=== PATIENT | female | born 1985 | race Asian ===

== ENCOUNTER 2016-04-24 15:45 | Emergency (ER) | payer OTHER | END 2016-04-24 15:49 | disposition left against medical advice (07) | LOC: M ED 15:45 | DX: R10.30 Lower abdominal pain, unspecified (principal); Z53.20 Procedure and treatment not carried out because of patient's decision for unspecified reasons ==

== ENCOUNTER 2016-04-24 16:07 | Emergency (ER) | payer OTHER ==
[2016-04-24 16:57] LABS: MEAN CORPUSCULAR HGB CONC 33.3 g/dl (32.0-36.5); MEAN CORPUSCULAR VOLUME 90.3 fl (80.0-96.0); RED CELL DISTRIBUTION WIDTH 11.9 % (11.5-14.5); WHITE BLOOD COUNT 8.6 K/mm3 (4.0-10.0)
[2016-04-24 17:26] LABS: ALBUMIN 3.9 GM/DL (3.2-5.2); ALBUMIN/GLOBULIN RATIO 1.11 (1.00-1.93); ALKALINE PHOSPHATASE 50 U/L (45-117); ALT/SGPT 12 U/L (12-78); ANION GAP 9 MEQ/L (8-16); AST/SGOT 19 U/L (15-37); BILIRUBIN,TOTAL 0.4 MG/DL (0.2-1.0); BLOOD UREA NITROGEN 13 MG/DL (7-18); CALCIUM LEVEL 8.9 MG/DL (8.5-10.1); CARBON DIOXIDE LEVEL 26 MEQ/L (21-32); CHLORIDE LEVEL 107 MEQ/L (98-107); CREATININE FOR GFR 0.51 MG/DL (0.55-1.02); GLOMERULAR FILTRATION RATE > 60.0 (>60); GLUCOSE, FASTING 95 MG/DL (70-105); SODIUM LEVEL 142 MEQ/L (136-145); TOTAL PROTEIN 7.4 GM/DL (6.4-8.2)
--- NOTE | 2016-04-24 18:49 | EDDOCDS ---
Nurse's Notes [facility] Name: Rosa Solorzano Age: 30 yrs Sex: Female : 1985 Arrival Date: 04/24/2016 Time: 16:07 Bed I1 / M1 Private MD: Other - Complete Info On Cds; Osiel Simon Diagnosis: Pelvic and perineal pain-Possible ectopic Presentation: 04/24 16:12 Presenting complaint: Patient states: Has IUD in place and missed period by 10days. jo3 Unable to locate IUP. Suspecting ectopic. Sent by Woman to woman. Adult Sepsis Screening: The patient does not have new or worsening altered mentation. Patient's respiratory rate is less than 22. Systolic blood pressure is greater than 100. Patient has a qSOFA score of 0- Negative Sepsis Screen. Suicide/Homicide risk assessment- the patient denies having any suicidal and/or homicidal ideations and does not present with any other emotional, behavioral or mental health complaints. 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 Transition of care: patient was not received from another setting of care. 16:12 Acuity: KAREN Level 3 jo3 16:12 Method Of Arrival: Walkin/Carried/Asstd jo3 Triage Assessment: 16:14 General: Appears in no apparent distress, Behavior is appropriate for age, cooperative, jo3 pleasant. Pain: Denies pain. HIV screening NA for this visit Offered previously. The patient is triaged at the bedside. See Assessment in Nurses Notes section of ED record. Neurological: Level of Consciousness is awake, alert, Oriented to person, place, time. Respiratory: Airway is patent Respiratory effort is even, unlabored. GI: Reports discomfort with palpation of abdomen. 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 none - PMHx: none; - PSHx: ; - Social history: Smoking status: Patient states was never smoker of tobacco. No barriers to communication noted, The patient speaks fluent Burkinan, Speaks appropriately for age. - Family history: Not pertinent. - : The pt / caregiver states he / she is not on anticoagulants. Home medication list is obtained from the patient. - Exposure Risk Screening:: None identified. Screenin:48 Screening information is obtained from the patient. Fall risk: No risks identified. mcp Assistance ADL's: requires no assistance with activities of daily living. Abuse/DV Screen: The patient / caregiver reports he/she is: not in a situation that causes fear, pain or injury. Nutritional screening: No deficits noted. Advance Directives: There is no active DNR order. home support is adequate. Assessment: 16:47 General: Appears in no apparent distress, comfortable, Behavior is cooperative. mcp Neurological: No deficits noted. Respiratory: Airway is patent Respiratory effort is even, unlabored. GI: Bowel sounds present X 4 quads. Abd is soft X 4 quads. Derm: Skin is pink, warm & dry. 17:30 General: Appears in no apparent distress, Behavior is cooperative, awaiting Dr Burger. mk4 Respiratory: Airway is patent Respiratory effort is even, unlabored, Respiratory pattern is regular. GI: No deficits noted. 18:31 General: Appears in no apparent distress, dr burger in room examining pt. mk4 Vital Signs: 16:08 BP 102 / 76; Pulse 83; Resp 16; Temp 99.4(O); Pulse Ox 99% ; Weight 42.64 kg; Height 5 elp ft. 0 in. (152.40 cm); Pain 6/10; 18:01 BP 108 / 60; Pulse 76; Resp 18; Temp 98.6(O); Pulse Ox 100% on R/A; Pain 0/10; jml1 16:08 Body Mass Index 18.36 (42.64 kg, 152.40 cm) elp Vitals: 16:08 Log In Time: April 24, 2016 at 16:05. el ED Course: 16:08 Patient visited by Kendy Lofton PCA. elp 16:08 Other - Complete Info On Cds is Private Physician. elp 16:08 Osiel Simon MD is Private Physician. elp 16:08 Patient moved to Waiting elp 16:09 Patient visited by Kendy Lofton PCA. elp 16:09 Patient moved to Pre RCE elp 16:13 Triage Initiated jo3 16:16 Patient visited by Jennifer Vides RN. jo3 16:19 Nathan Braun PA-C [facility]. cc10 16:19 Chad Elizalde MD is Attending Physician. cc10 16:23 Patient visited by Nathan Braun PA-C. cc10 16:23 Patient visited by Nathan Braun PA-C. cc10 16:23 Patient moved to I1 / M1 ck1 16:46 Complete Comphrensive Metabolic Sent. [facility] 16:46 Complete Blood Count Sent. [facility] 16:46 Hcg, Serum Quantitative Sent. [facility] 16:46 Type & Screen Sent. [facility] 16:46 Inserted saline lock: 20 gauge in left antecubital area and blood collected. The [facility] patient tolerated the procedure well. Labs drawn. (by ED staff). Sent per order to lab. 16:49 Patient visited by Franca Noland RN. [facility] 17:29 Patient visited by Samia Castañeda RN. mk4 17:30 The patient / caregiver is instructed regarding the plan of care and ED course. mk4 17:30 No procedures done that require assistance. mk4 17:51 Urinalysis Sent. jml1 17:51 Urine Culture Sent. jm 18:02 Patient visited by Jose Persaud. [facility] 18:40 Ignacio Kapoor is Referral Physician. cc10 18:[address] [facility] 18:47 Discontinued lock intact, bleeding controlled, pressure dressing applied, No mcp redness/swelling at site. Order Results: Lab Order: Complete Blood Count; SPEC'M 04/24/16 16:43 Test: WHITE BLOOD COUNT; Value: 8.6; Range: 4.0-10.0; Units: K/mm3; Status: F Test: RED BLOOD COUNT; Value: 4.30; Range: 4.00-5.40; Units: M/mm3; Status: F Test: HEMOGLOBIN; Value: 12.9; Range: 12.0-16.0; Units: g/dl; Status: F Test: HEMATOCRIT; Value: 38.8; Range: 36.0-47.0; Units: %; Status: F Test: MEAN CORPUSCULAR VOLUME; Value: 90.3; Range: 80.0-96.0; Units: fl; Status: F Test: MEAN CORPUSCULAR HEMOGLOBIN; Value: 30.0; Range: 27.0-33.0; Units: pg; Status: F Test: MEAN CORPUSCULAR HGB CONC; Value: 33.3; Range: 32.0-36.5; Units: g/dl; Status: F Test: RED CELL DISTRIBUTION WIDTH; Value: 11.9; Range: 11.5-14.5; Units: %; Status: F Test: PLATELET COUNT, AUTOMATED; Value: 310; Range: 150-450; Units: k/mm3; Status: F Lab Order: Hcg, Serum Quantitative; [facility] 04/24/16 16:43 Test: HCG, SERUM QUANTITATIVE; Value: 716; Units: MIU/ML; Status: F Test Note: ; GESTATIONAL AGE APPROXIMATE HCG RANGE (MIU/ML) 0.2-1 WEEK 5-50 1-2 WEEKS 50-500 2-3 WEEKS 100-5,000 3-4 WEEKS 500-10,000 4-5 WEEKS 1,000-50,000 5-6 WEEKS 10,000-100,000 6-8 WEEKS 15,000-200,000 2-3 MONTHS 10,000-100,000 NON FEMALES LESS THAN 3.0 Patient samples may contain human heterophilic antibodies that could react with immunoassays to give falsely elevated or depressed results. This assay has been designed to minimize interference from heterophilic antibodies. Elevated hCG levels have also been associated with trophoblastic disease and nontrophoblastic neoplasms. The possibility of having these diseases should be considered before a diagnosis of is made. This test is not intended for use as a surrogate marker for aiding in the diagnosis or monitoring the treatment of cancer patients. Siemens Tapomat methodology. Lab Order: Type & Screen; [facility] 04/24/16 16:43 Test: BLOOD TYPE; Value: AB POS; Status: F Test: AB SCREEN (INDIRECT JESSIKA)GEL; Value: NEGATIVE; Status: F Lab Order: Urinalysis; [facility] 04/24/16 17:49 Test: APPEARANCE, URINE; Value: CLEAR; Range: CLEAR; Status: F Test: COLOR, URINE; Value: STRAW; Range: YELLOW; Status: F Test: PH,URINE; Value: 7.0; Range: 5.0-9.0; Units: UNITS; Status: F Test: SPECIFIC GRAVITY URINE AUTO; Value: 1.010; Range: 1.002-1.035; Status: F Test: PROTEIN, URINE AUTO; Value: NEGATIVE; Range: NEGATIVE; Units: mg/dL; Status: F Test: GLUCOSE, URINE (UA) AUTO; Value: NEGATIVE; Range: NEGATIVE; Units: mg/dL; Status: F Test: KETONE, URINE AUTO; Value: TRACE; Range: NEGATIVE; Abnormal: Above high normal; Units: mg/dL; Status: F Test: UROBILINOGEN, URINE AUTO; Value: 0.2; Range: 0.0-2.0; Units: mg/dL; Status: F Test: BILIRUBIN, URINE AUTO; Value: NEGATIVE; Range: NEGATIVE; Status: F Test: NITRITE, URINE AUTO; Value: NEGATIVE; Range: NEGATIVE; Status: F Test: LEUKOCYTE ESTERASE, URINE AUTO; Value: NEGATIVE; Range: NEGATIVE; Status: F Test: BLOOD, URINE BLOOD; Value: NEGATIVE; Range: NEGATIVE; Status: F Test: WBC, URINE AUTO; Value: 0; Range: 0-3; Units: /HPF; Status: F Test: RBC, URINE AUTO; Value: 1; Range: 0-3; Units: /HPF; Status: F Test: BACTERIA, URINE AUTO; Value: NEGATIVE; Range: NEGATIVE; Status: F Test: SQUAMOUS EPITHELIAL CELL UR AU; Value: 0; Range: 0-6; Units: /HPF; Status: F Test: MUCUS, URINE; Value: SMALL; Range: NEGATIVE; Status: F Test: HYALINE CAST, URINE AUTO; Value: 0; Range: 0-1; Units: /LPF; Status: F Lab Order: Complete Comphrensive Metabolic; SPEC'M 04/24/16 16:43 Test: GLUCOSE, FASTING; Value: 95; Range: 70-105; Units: MG/DL; Status: F Test: BLOOD UREA NITROGEN; Value: 13; Range: 7-18; Units: MG/DL; Status: F Test: CREATININE FOR GFR; Value: 0.51; Range: 0.55-1.02; Abnormal: Below low normal; Units: MG/DL; Status: F Test: GLOMERULAR FILTRATION RATE; Value: > 60.0; Range: >60; Status: F Test: SODIUM LEVEL; Value: 142; Range: 136-145; Units: MEQ/L; Status: F Test: POTASSIUM SERUM; Value: 4.0; Range: 3.5-5.1; Units: MEQ/L; Status: F Test: CHLORIDE LEVEL; Value: 107; Range: 98-107; Units: MEQ/L; Status: F Test: CARBON DIOXIDE LEVEL; Value: 26; Range: 21-32; Units: MEQ/L; Status: F Test: ANION GAP; Value: 9; Range: 8-16; Units: MEQ/L; Status: F Test: CALCIUM LEVEL; Value: 8.9; Range: 8.5-10.1; Units: MG/DL; Status: F Test: AST/SGOT; Value: 19; Range: 15-37; Units: U/L; Status: F Test: ALT/SGPT; Value: 12; Range: 12-78; Units: U/L; Status: F Test: ALKALINE PHOSPHATASE; Value: 50; Range: 45-117; Units: U/L; Status: F Test: BILIRUBIN,TOTAL; Value: 0.4; Range: 0.2-1.0; Units: MG/DL; Status: F Test: TOTAL PROTEIN; Value: 7.4; Range: 6.4-8.2; Units: GM/DL; Status: F Test: ALBUMIN; Value: 3.9; Range: 3.2-5.2; Units: GM/DL; Status: F Test: ALBUMIN/GLOBULIN RATIO; Value: 1.11; Range: 1.00-1.93; Status: F Test Note: ; Units are mL/min/1.73 m2 Chronic Kidney Disease Staging per NKF: Stage I & II GFR >=60 Normal to Mildly Decreased Stage III GFR 30-59 Moderately Decreased Stage IV GFR 15-29 Severely Decreased Stage V GFR <15 Very Little GFR Left ESRD GFR <15 on EMERGENCY ROOM CLINICIAN Outcome: 18:41 Discharge ordered by Provider. cc10 18:48 Discharge Assessment: patient administered narcotics - no. The following High Risk [facility] Discharge criteria are identified: None. Discharged to home ambulatory. Condition: stable. Discharge instructions given to patient, Instructed on discharge instructions, follow up and referral plans. Demonstrated understanding of instructions, Pt was receptive of discharge instructions/ teaching. No special radiology studies were completed. Property sent home with patient. 18:[address] [facility] Signatures: Franca Noland RN RN mcp Kim-Ashcraft, Connie, RN RN ck1 Jennifer Vides RN RN [email or web address] Jose Persaudl1 Kendy Lofton, COLLECTION OFFICER COLLECTION OFFICER elp Samia Castañeda, RN RN mk4 Nathan Braun, PALeticiaC PALeticiaC cc10 Corrections: (The following items were deleted from the chart) 16:09 16:08 BP 102 / 76; Pulse 83bpm; Resp 16bpm; Pulse Ox 99%; 42.64 kg; Height 5 ft. 0 in.; elp BMI: 18.3; Pain 6/10; elp MTDD
--- NOTE | 2016-04-24 18:49 | EDDOCDS ---
Physician Documentation [facility] Name: Rosa Solorzano Age: 30 yrs Sex: Female : 1985 Arrival Date: 04/24/2016 Time: 16:07 Bed I1 / M1 Private MD: Other - Complete Info On Cds; Osiel Simon Disposition: 04/24/16 18:41 Discharged to Home/Self Care. Impression: Pelvic and perineal pain - Possible ectopic . - Condition is Stable. - Discharge Instructions: Pelvic Pain, Female, Ectopic . - Medication Reconciliation form. - Follow up: Emergency Department; When: 1 - 2 days; Reason: Recheck today's complaints, Continuance of care, recheck HCG level. . Follow up: Ignacio Kapoor; When: Call to arrange an appointment; Reason: Wound/Symptom Recheck, Recheck today's complaints, Worsening of conditions, Continuance of care. - Problem is new. - Symptoms have improved. - Notes: Return on Thursday evening for a rehceck of your HCG level. Your level today is 716. Historical: - Allergies: Bactrim; - Home Meds: 1. none - PMHx: none; - PSHx: ; - Social history: Smoking status: Patient states was never smoker of tobacco. No barriers to communication noted, The patient speaks fluent Polish, Speaks appropriately for age. - Family history: Not pertinent. - : The pt / caregiver states he / she is not on anticoagulants. Home medication list is obtained from the patient. - Exposure Risk Screening:: None identified. TOP POLISHER: 04/24 16:14 LMP 03/15/2016 jo3 Vital Signs: 16:08 BP 102 / 76; Pulse 83; Resp 16; Temp 99.4(O); Pulse Ox 99% ; Weight 42.64 kg / 94.01 elp lbs; Height 5 ft. 0 in. (152.40 cm); Pain 6/10; 18:01 BP 108 / 60; Pulse 76; Resp 18; Temp 98.6(O); Pulse Ox 100% on R/A; Pain 0/10; jml1 16:08 Body Mass Index 18.36 (42.64 kg, 152.40 cm) elp MDM: 16:28 IV Saline Lock ordered. cc10 16:28 Undress patient appropriately for examination ordered. cc10 16:29 Complete Blood Count Ordered. EDMS 16:29 Hcg, Serum Quantitative Ordered. EDMS 16:29 Urinalysis Ordered. EDMS 16:30 Urine Culture Ordered. EDMS 16:30 Type & Screen Ordered. EDMS 16:30 NOTHING BY MOUTH+DIET ordered. EDMS 16:35 Complete Comphrensive Metabolic Ordered. EDMS 17:45 Complete Comphrensive Metabolic Reviewed. cc10 17:45 Complete Blood Count Reviewed. cc10 17:45 Hcg, Serum Quantitative Reviewed. cc10 17:45 Type & Screen Reviewed. cc10 17:55 Vital Signs ordered. cc10 18:26 Urinalysis Reviewed. cc10 18:40 Misc Field Pipelines Supervisor Order ordered. cc10 18:42 Misc Field Pipelines Supervisor Order complete. jml1 18:46 PROGESTERONE LEVEL Ordered. EDMS Signatures: Dispatcher [employer] EDMS Franca Noland, RN RN Jennifer DobbinsRN RN Jose Stern jml1 Samia Castañeda RN RN mk4 Nathan Braun, GIA PA-C cc10 The chart was reviewed and I authenticate all verbal orders and agree with the evaluation and treatment provided.Corrections: (The following items were deleted from the chart) 16:50 16:30 1ST TRIMESTER US+US ordered. EDMS EDMS MTDD
[2016-04-24 19:09] LABS: PROGESTERONE 30.4 NG/ML
--- NOTE | 2016-04-26 19:49 | EDDOCDS ---
Physician Documentation [facility] Name: Rosa Solorzano Age: 30 yrs Sex: Female : 1985 Arrival Date: 04/24/2016 Time: 16:07 Bed I1 / M1 Private MD: Other - Complete Info On Cds; Osiel Simon Disposition: 04/24/16 18:41 Discharged to Home/Self Care. Impression: Pelvic and perineal pain - Possible ectopic . - Condition is Stable. - Discharge Instructions: Pelvic Pain, Female, Ectopic . - Medication Reconciliation form. - Follow up: Emergency Department; When: 1 - 2 days; Reason: Recheck today's complaints, Continuance of care, recheck HCG level. . Follow up: Ignacio Kapoor; When: Call to arrange an appointment; Reason: Wound/Symptom Recheck, Recheck today's complaints, Worsening of conditions, Continuance of care. - Problem is new. - Symptoms have improved. - Notes: Return on Thursday evening for a rehceck of your HCG level. Your level today is 716. Historical: - Allergies: Bactrim; - Home Meds: 1. none - PMHx: none; - PSHx: ; - Social history: Smoking status: Patient states was never smoker of tobacco. No barriers to communication noted, The patient speaks fluent Chinese, Speaks appropriately for age. - Family history: Not pertinent. - : The pt / caregiver states he / she is not on anticoagulants. Home medication list is obtained from the patient. - Exposure Risk Screening:: None identified. HELPER COORDINATOR: 04/24 16:14 LMP 03/15/2016 jo3 Vital Signs: 16:08 BP 102 / 76; Pulse 83; Resp 16; Temp 99.4(O); Pulse Ox 99% ; Weight 42.64 kg / 94.01 elp lbs; Height 5 ft. 0 in. (152.40 cm); Pain 6/10; 18:01 BP 108 / 60; Pulse 76; Resp 18; Temp 98.6(O); Pulse Ox 100% on R/A; Pain 0/10; jml1 16:08 Body Mass Index 18.36 (42.64 kg, 152.40 cm) elp MDM: 16:28 IV Saline Lock ordered. cc10 16:28 Undress patient appropriately for examination ordered. cc10 16:29 Complete Blood Count Ordered. EDMS 16:29 Hcg, Serum Quantitative Ordered. EDMS 16:29 Urinalysis Ordered. EDMS 16:30 Urine Culture Ordered. EDMS 16:30 Type & Screen Ordered. EDMS 16:30 NOTHING BY MOUTH+DIET ordered. EDMS 16:35 Complete Comphrensive Metabolic Ordered. EDMS 17:45 Complete Comphrensive Metabolic Reviewed. cc10 17:45 Complete Blood Count Reviewed. cc10 17:45 Hcg, Serum Quantitative Reviewed. cc10 17:45 Type & Screen Reviewed. cc10 17:55 Vital Signs ordered. cc10 18:26 Urinalysis Reviewed. cc10 18:40 [employer] Principal Order ordered. cc10 18:42 Misc [employer] Principal Order complete. jml1 18:46 PROGESTERONE LEVEL Ordered. EDMS 18:54 [facility] [place] Payment Agreement was scanned into [employer] and attached to record. gjb 18:54 Financial registration complete. b 04/25 12:04 T-Sheet-- Draft Copy was scanned into [employer] and attached to record. gb Signatures: Dispatcher [employer] EDDC Franca Noland, RN RN Clary Alex, Reg Reg gb Jennifer VidesRN RN Jose Stern jml1 Samia Castañeda RN RN mk4 Nathan Braun, PA-Lb PAReshma Barreto The chart was reviewed and I authenticate all verbal orders and agree with the evaluation and treatment provided.Corrections: (The following items were deleted from the chart) 04/24 16:50 16:30 1ST TRIMESTER US+US ordered. EDDC EDMS Attachments: 18:54 [facility] [place] Payment Agreement [facility] 04/25 12:04 T-Sheet-- Draft Copy gb Chart Complete MTDD
--- NOTE | 2016-04-26 19:49 | EDDOCDS ---
Nurse's Notes [facility] Name: Rosa Solorzano Age: 30 yrs Sex: Female : 1985 Arrival Date: 04/24/2016 Time: 16:07 Bed I1 / M1 Private MD: Other - Complete Info On Cds; Osiel Simon Diagnosis: Pelvic and perineal pain-Possible ectopic Presentation: 04/24 16:12 Presenting complaint: Patient states: Has IUD in place and missed period by 10days. jo3 Unable to locate IUP. Suspecting ectopic. Sent by Woman to woman. Adult Sepsis Screening: The patient does not have new or worsening altered mentation. Patient's respiratory rate is less than 22. Systolic blood pressure is greater than 100. Patient has a qSOFA score of 0- Negative Sepsis Screen. Suicide/Homicide risk assessment- the patient denies having any suicidal and/or homicidal ideations and does not present with any other emotional, behavioral or mental health complaints. Status: Patient is not a business services representative or dependent. Transition of care: patient was not received from another setting of care. 16:12 Acuity: KAREN Level 3 jo3 16:12 Method Of Arrival: Walkin/Carried/Asstd jo3 Triage Assessment: 16:14 General: Appears in no apparent distress, Behavior is appropriate for age, cooperative, jo3 pleasant. Pain: Denies pain. HIV screening NA for this visit Offered previously. The patient is triaged at the bedside. See Assessment in Nurses Notes section of ED record. Neurological: Level of Consciousness is awake, alert, Oriented to person, place, time. Respiratory: Airway is patent Respiratory effort is even, unlabored. GI: Reports discomfort with palpation of abdomen. 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 none - PMHx: none; - PSHx: ; - Social history: Smoking status: Patient states was never smoker of tobacco. No barriers to communication noted, The patient speaks fluent Swiss, Speaks appropriately for age. - Family history: Not pertinent. - : The pt / caregiver states he / she is not on anticoagulants. Home medication list is obtained from the patient. - Exposure Risk Screening:: None identified. Screenin:48 Screening information is obtained from the patient. Fall risk: No risks identified. mcp Assistance ADL's: requires no assistance with activities of daily living. Abuse/DV Screen: The patient / caregiver reports he/she is: not in a situation that causes fear, pain or injury. Nutritional screening: No deficits noted. Advance Directives: There is no active DNR order. home support is adequate. Assessment: 16:47 General: Appears in no apparent distress, comfortable, Behavior is cooperative. mcp Neurological: No deficits noted. Respiratory: Airway is patent Respiratory effort is even, unlabored. GI: Bowel sounds present X 4 quads. Abd is soft X 4 quads. Derm: Skin is pink, warm & dry. 17:30 General: Appears in no apparent distress, Behavior is cooperative, awaiting Dr Burger. mk4 Respiratory: Airway is patent Respiratory effort is even, unlabored, Respiratory pattern is regular. GI: No deficits noted. 18:31 General: Appears in no apparent distress, dr burger in room examining pt. mk4 Vital Signs: 16:08 BP 102 / 76; Pulse 83; Resp 16; Temp 99.4(O); Pulse Ox 99% ; Weight 42.64 kg; Height 5 elp ft. 0 in. (152.40 cm); Pain 6/10; 18:01 BP 108 / 60; Pulse 76; Resp 18; Temp 98.6(O); Pulse Ox 100% on R/A; Pain 0/10; jml1 16:08 Body Mass Index 18.36 (42.64 kg, 152.40 cm) elp Vitals: 16:08 Log In Time: April 24, 2016 at 16:05. el ED Course: 16:08 Patient visited by Kendy Lofton PCA. elp 16:08 Other - Complete Info On Cds is Private Physician. elp 16:08 Osiel Simon MD is Private Physician. elp 16:08 Patient moved to Waiting elp 16:09 Patient visited by Kendy Lofton PCA. elp 16:09 Patient moved to Pre RCE elp 16:13 Triage Initiated jo3 16:16 Patient visited by Jennifer Vides RN. jo3 16:19 [facility] cc10 16:19 Chad Elizalde MD is Attending Physician. cc10 16:23 Patient visited by Nathan Braun PA-C. cc10 16:23 Patient visited by Nathan Braun PA-C. cc10 16:23 Patient moved to I1 / M1 ck1 16:46 Complete Comphrensive Metabolic Sent. [facility] 16:46 Complete Blood Count Sent. [facility] 16:46 Hcg, Serum Quantitative Sent. [facility] 16:46 Type & Screen Sent. [facility] 16:46 Inserted saline lock: 20 gauge in left antecubital area and blood collected. The [facility] patient tolerated the procedure well. Labs drawn. (by ED staff). Sent per order to lab. 16:49 Patient visited by Franca Noland, MARISSA. [facility] 17:29 Patient visited by Samia Castañeda RN. mk4 17:30 The patient / caregiver is instructed regarding the plan of care and ED course. mk4 17:30 No procedures done that require assistance. mk4 17:51 Urinalysis Sent. jml1 17:51 Urine Culture Sent. jml1 18:02 Patient visited by Jose Persaud. jml1 18:40 Ignacio Kapoor is Referral Physician. cc10 18:47 PROGESTERONE LEVEL Sent. [facility] 18:47 Discontinued lock intact, bleeding controlled, pressure dressing applied, No mcp redness/swelling at site. 18:54 [facility] Payment Agreement was scanned into [employer] and attached to record. gjb 19:37 Patient name changed from Rosa\S\\S\Solorzano\S\ to Rosa\S\ \S\Solorzano. EDMS 04/25 12:04 T-Sheet-- Draft Copy was scanned into [employer] and attached to record. gb Order Results: Lab Order: Complete Blood Count; SPEC'M 04/24/16 16:43 Test: WHITE BLOOD COUNT; Value: 8.6; Range: 4.0-10.0; Units: K/mm3; Status: F Test: RED BLOOD COUNT; Value: 4.30; Range: 4.00-5.40; Units: M/mm3; Status: F Test: HEMOGLOBIN; Value: 12.9; Range: 12.0-16.0; Units: g/dl; Status: F Test: HEMATOCRIT; Value: 38.8; Range: 36.0-47.0; Units: %; Status: F Test: MEAN CORPUSCULAR VOLUME; Value: 90.3; Range: 80.0-96.0; Units: fl; Status: F Test: MEAN CORPUSCULAR HEMOGLOBIN; Value: 30.0; Range: 27.0-33.0; Units: pg; Status: F Test: MEAN CORPUSCULAR HGB CONC; Value: 33.3; Range: 32.0-36.5; Units: g/dl; Status: F Test: RED CELL DISTRIBUTION WIDTH; Value: 11.9; Range: 11.5-14.5; Units: %; Status: F Test: PLATELET COUNT, AUTOMATED; Value: 310; Range: 150-450; Units: k/mm3; Status: F Lab Order: Hcg, Serum Quantitative; SPEC'M 04/24/16 16:43 Test: HCG, SERUM QUANTITATIVE; Value: 716; Units: MIU/ML; Status: F Test Note: ; GESTATIONAL AGE APPROXIMATE HCG RANGE (MIU/ML) 0.2-1 WEEK 5-50 1-2 WEEKS 50-500 2-3 WEEKS 100-5,000 3-4 WEEKS 500-10,000 4-5 WEEKS 1,000-50,000 5-6 WEEKS 10,000-100,000 6-8 WEEKS 15,000-200,000 2-3 MONTHS 10,000-100,000 NON FEMALES LESS THAN 3.0 Patient samples may contain human heterophilic antibodies that could react with immunoassays to give falsely elevated or depressed results. This assay has been designed to minimize interference from heterophilic antibodies. Elevated hCG levels have also been associated with trophoblastic disease and nontrophoblastic neoplasms. The possibility of having these diseases should be considered before a diagnosis of is made. This test is not intended for use as a surrogate marker for aiding in the diagnosis or monitoring the treatment of cancer patients. Siemens Weele[employer] methodology. Lab Order: Type & Screen; SPEC' 04/24/16 16:43 Test: BLOOD TYPE; Value: AB POS; Status: F Test: AB SCREEN (INDIRECT JESSIKA)GEL; Value: NEGATIVE; Status: F Lab Order: Urinalysis; SPEC' 04/24/16 17:49 Test: APPEARANCE, URINE; Value: CLEAR; Range: CLEAR; Status: F Test: COLOR, URINE; Value: STRAW; Range: YELLOW; Status: F Test: PH,URINE; Value: 7.0; Range: 5.0-9.0; Units: UNITS; Status: F Test: SPECIFIC GRAVITY URINE AUTO; Value: 1.010; Range: 1.002-1.035; Status: F Test: PROTEIN, URINE AUTO; Value: NEGATIVE; Range: NEGATIVE; Units: mg/dL; Status: F Test: GLUCOSE, URINE (UA) AUTO; Value: NEGATIVE; Range: NEGATIVE; Units: mg/dL; Status: F Test: KETONE, URINE AUTO; Value: TRACE; Range: NEGATIVE; Abnormal: Above high normal; Units: mg/dL; Status: F Test: UROBILINOGEN, URINE AUTO; Value: 0.2; Range: 0.0-2.0; Units: mg/dL; Status: F Test: BILIRUBIN, URINE AUTO; Value: NEGATIVE; Range: NEGATIVE; Status: F Test: NITRITE, URINE AUTO; Value: NEGATIVE; Range: NEGATIVE; Status: F Test: LEUKOCYTE ESTERASE, URINE AUTO; Value: NEGATIVE; Range: NEGATIVE; Status: F Test: BLOOD, URINE BLOOD; Value: NEGATIVE; Range: NEGATIVE; Status: F Test: WBC, URINE AUTO; Value: 0; Range: 0-3; Units: /HPF; Status: F Test: RBC, URINE AUTO; Value: 1; Range: 0-3; Units: /HPF; Status: F Test: BACTERIA, URINE AUTO; Value: NEGATIVE; Range: NEGATIVE; Status: F Test: SQUAMOUS EPITHELIAL CELL UR AU; Value: 0; Range: 0-6; Units: /HPF; Status: F Test: MUCUS, URINE; Value: SMALL; Range: NEGATIVE; Status: F Test: HYALINE CAST, URINE AUTO; Value: 0; Range: 0-1; Units: /LPF; Status: F Lab Order: Urine Culture; SPEC'M 04/24/16 17:49 Test: URINE CULTURE; Value: <EXTERNAL COMMENT eCWMed> FULL REPORT IN LAB NOTES (eCW and Medent).; Status: F Test: URINE CULTURE; Value: URINE CULTURE RESULT NO GROWTH; Status: F Lab Order: Complete Comphrensive Metabolic; SPEC'M 04/24/16 16:43 Test: GLUCOSE, FASTING; Value: 95; Range: 70-105; Units: MG/DL; Status: F Test: BLOOD UREA NITROGEN; Value: 13; Range: 7-18; Units: MG/DL; Status: F Test: CREATININE FOR GFR; Value: 0.51; Range: 0.55-1.02; Abnormal: Below low normal; Units: MG/DL; Status: F Test: GLOMERULAR FILTRATION RATE; Value: > 60.0; Range: >60; Status: F Test: SODIUM LEVEL; Value: 142; Range: 136-145; Units: MEQ/L; Status: F Test: POTASSIUM SERUM; Value: 4.0; Range: 3.5-5.1; Units: MEQ/L; Status: F Test: CHLORIDE LEVEL; Value: 107; Range: 98-107; Units: MEQ/L; Status: F Test: CARBON DIOXIDE LEVEL; Value: 26; Range: 21-32; Units: MEQ/L; Status: F Test: ANION GAP; Value: 9; Range: 8-16; Units: MEQ/L; Status: F Test: CALCIUM LEVEL; Value: 8.9; Range: 8.5-10.1; Units: MG/DL; Status: F Test: AST/SGOT; Value: 19; Range: 15-37; Units: U/L; Status: F Test: ALT/SGPT; Value: 12; Range: 12-78; Units: U/L; Status: F Test: ALKALINE PHOSPHATASE; Value: 50; Range: 45-117; Units: U/L; Status: F Test: BILIRUBIN,TOTAL; Value: 0.4; Range: 0.2-1.0; Units: MG/DL; Status: F Test: TOTAL PROTEIN; Value: 7.4; Range: 6.4-8.2; Units: GM/DL; Status: F Test: ALBUMIN; Value: 3.9; Range: 3.2-5.2; Units: GM/DL; Status: F Test: ALBUMIN/GLOBULIN RATIO; Value: 1.11; Range: 1.00-1.93; Status: F Test Note: ; Units are mL/min/1.73 m2 Chronic Kidney Disease Staging per NKF: Stage I & II GFR >=60 Normal to Mildly Decreased Stage III GFR 30-59 Moderately Decreased Stage IV GFR 15-29 Severely Decreased Stage V GFR <15 Very Little GFR Left ESRD GFR <15 on DRY MOLDER Lab Order: PROGESTERONE LEVEL; SPEC'M 04/24/16 16:43 Test: PROGESTERONE; Value: 30.4; Units: NG/ML; Status: F Test Note: ; Normal Ranges (ng/ml) Females : FOLLICULAR PHASE 0.15-1.40 LUTEAL PHASE 3.34-25.56 MID-LUTEAL PHASE 4.44-28.03 POST MENOPAUSAL <0.73 Females : 1st TRIMESTER 11.22-90.00 2nd TRIMESTER 25.55-89.40 3rd TRIMESTER 48.40-422.50 Outcome: 04/24 18:41 Discharge ordered by Provider. cc10 18:48 Discharge Assessment: patient administered narcotics - no. The following High Risk [facility] Discharge criteria are identified: None. Discharged to home ambulatory. Condition: stable. Discharge instructions given to patient, Instructed on discharge instructions, follow up and referral plans. Demonstrated understanding of instructions, Pt was receptive of discharge instructions/ teaching. No special radiology studies were completed. Property sent home with patient. 18:48 Patient left the ED. [facility] Signatures: Dispatcher [employer] EDFranca Baxter, RN RN [facility] Clary Gorman, Reg Reg Tanvi Winetr,RN RN ck1 Jennifer Vides,RN RN massiel3 Jose Persaud jml1 Kendy Lofton, YOVANA INFORMATION TECHNOLOGY CONSULTANT Samia Sierra, RN RN mk4 Nathan Braun, PA-C PA-C cc10 Reshma Noonan Corrections: (The following items were deleted from the chart) 16:09 16:08 BP 102 / 76; Pulse 83bpm; Resp 16bpm; Pulse Ox 99%; 42.64 kg; Height 5 ft. 0 in.; elp BMI: 18.3; Pain 6/10; elp Chart Complete MTDD
--- NOTE | 2016-04-26 19:49 | EDDOCDS ---
Physician Documentation [facility] Name: Rosa Solorzano Age: 30 yrs Sex: Female : 1985 Arrival Date: 04/24/2016 Time: 16:07 Bed I1 / M1 Private MD: Other - Complete Info On Cds; Osiel Simon Disposition: 04/24/16 18:41 Discharged to Home/Self Care. Impression: Pelvic and perineal pain - Possible ectopic . - Condition is Stable. - Discharge Instructions: Pelvic Pain, Female, Ectopic . - Medication Reconciliation form. - Follow up: Emergency Department; When: 1 - 2 days; Reason: Recheck today's complaints, Continuance of care, recheck HCG level. . Follow up: Ignacio Kapoor; When: Call to arrange an appointment; Reason: Wound/Symptom Recheck, Recheck today's complaints, Worsening of conditions, Continuance of care. - Problem is new. - Symptoms have improved. - Notes: Return on Thursday evening for a rehceck of your HCG level. Your level today is 716. Historical: - Allergies: Bactrim; - Home Meds: 1. none - PMHx: none; - PSHx: ; - Social history: Smoking status: Patient states was never smoker of tobacco. No barriers to communication noted, The patient speaks fluent Maori, Speaks appropriately for age. - Family history: Not pertinent. - : The pt / caregiver states he / she is not on anticoagulants. Home medication list is obtained from the patient. - Exposure Risk Screening:: None identified. ADVERTISING JOB TITLES: 04/24 16:14 LMP 03/15/2016 jo3 Vital Signs: 16:08 BP 102 / 76; Pulse 83; Resp 16; Temp 99.4(O); Pulse Ox 99% ; Weight 42.64 kg / 94.01 elp lbs; Height 5 ft. 0 in. (152.40 cm); Pain 6/10; 18:01 BP 108 / 60; Pulse 76; Resp 18; Temp 98.6(O); Pulse Ox 100% on R/A; Pain 0/10; jml1 16:08 Body Mass Index 18.36 (42.64 kg, 152.40 cm) elp MDM: 16:28 IV Saline Lock ordered. cc10 16:28 Undress patient appropriately for examination ordered. cc10 16:29 Complete Blood Count Ordered. EDMS 16:29 Hcg, Serum Quantitative Ordered. EDMS 16:29 Urinalysis Ordered. EDMS 16:30 Urine Culture Ordered. EDMS 16:30 Type & Screen Ordered. EDMS 16:30 NOTHING BY MOUTH+DIET ordered. EDMS 16:35 Complete Comphrensive Metabolic Ordered. EDMS 17:45 Complete Comphrensive Metabolic Reviewed. cc10 17:45 Complete Blood Count Reviewed. cc10 17:45 Hcg, Serum Quantitative Reviewed. cc10 17:45 Type & Screen Reviewed. cc10 17:55 Vital Signs ordered. cc10 18:26 Urinalysis Reviewed. cc10 18:40 Misc Actuarial Consultant Order ordered. cc10 18:42 Misc Actuarial Consultant Order complete. jml1 18:46 PROGESTERONE LEVEL Ordered. EDMS 18:54 [facility] Payment Agreement was scanned into [employer] and attached to record. gjb 18:54 Financial registration complete. b 04/25 12:04 T-Sheet-- Draft Copy was scanned into [employer] and attached to record. gb Signatures: Dispatcher [employer] EDAL Franca Noland, RN RN Clary Alex, Reg Reg gb Jennifer VidesRN RN Jose Stern jml1 Samia Castañeda RN RN mk4 Nathan Braun, PA-Lb PAReshma aBrreto The chart was reviewed and I authenticate all verbal orders and agree with the evaluation and treatment provided.Corrections: (The following items were deleted from the chart) 04/24 16:50 16:30 1ST TRIMESTER US+US ordered. EDAL EDMS Attachments: 18:54 [facility] Payment Agreement [facility] 04/25 12:04 T-Sheet-- Draft Copy gb Chart Complete MTDD
== END 2016-04-24 18:48 | disposition home or self-care (01) ==
LOC: M ED 16:07
DX: R10.2 Pelvic and perineal pain (principal); Z88.1 Allergy status to other antibiotic agents

== ENCOUNTER → 2016-04-24 | Outpatient (CLI) | payer OTHER ==
--- NOTE | 2016-04-25 08:18 | REP ---
FIRST TRIMESTER OB SONOGRAPHY: History: Positive test, IUD in place. Findings: Transabdominal and transvaginal scanning are performed. Uterine dimensions are slightly enlarged at 10.2 x 4.2 x 6.4 cm. Endometrial echo is 1.9 cm thick. The IUD is in good position in the uterine endometrium. There is no evidence of intrauterine gestation. There is mild to moderate free fluid in the cul-de-sac. The right ovary measures 2.9 x 1.9 x 1.7 cm. Its Doppler flow is normal with resistive index of 0.56. Adjacent to the right ovary there is a 2.0 x 2.6 x 1.4 cm hypoechoic solid appearing area. It is difficult to exclude normal bowel versus complex mass lesion. A normal left ovary is seen with dimensions of 3.7 x 2.5 x 3.3 cm. Its Doppler flow is normal. Left ovary resistive index 0.39. Impression: IUD in the uterus no evidence of intrauterine gestation. Free fluid in the cul-de-sac and equivocal 2.6 cm complex area adjacent to the right ovary. Ectopic cannot be excluded.
== END ==
LOC: M WHC 14:08
PROVIDERS: ATTEND Nurse Practitioner Women's Health
DX: Z32.01 Encounter for pregnancy test, result positive (principal); O26.30 Retained intrauterine contraceptive device in pregnancy, unspecified trimester

== ENCOUNTER → 2016-04-24 | Outpatient (REF) | payer OTHER | LOC: M SFHCWAGY 14:39 | PROVIDERS: ATTEND Nurse Practitioner Women's Health | DX: O26.30 Retained intrauterine contraceptive device in pregnancy, unspecified trimester (principal); Z53.9 Procedure and treatment not carried out, unspecified reason ==

== ENCOUNTER 2016-04-26 18:23 | Emergency (ER) | payer OTHER ==
--- NOTE | 2016-04-26 20:51 | EDDOCDS ---
Physician Documentation [facility] Name: Rosa Solorzano Age: 30 yrs Sex: Female : 1985 Arrival Date: 04/26/2016 Time: 18:23 Bed TR6 Private MD: Osiel Simon MD Disposition: 04/26/16 20:31 Discharged to Home/Self Care. Impression: state - FIRST TRIMESTER. - Condition is Stable. - Discharge Instructions: First Trimester of . - Medication Reconciliation, Local Pharmacy Hours form. - Follow up: Emergency Department; When: As needed; Reason: Worsening of conditions. Follow up: Ignacio Guzman; When: Call to arrange an appointment; Reason: Wound/Symptom Recheck, Recheck today's complaints, Continuance of care. - Problem is new. - Symptoms are unchanged. - Notes: YOUR HCG TODAY WAS 1641. THIS IS DOUBLING LIKE A NORMAL HCG LEVEL SHOULD IN EARLY . PLEASE FOLLOW UP WITH DR. GUZMAN'S OFFICE AT YOUR SCHEDULED APPOINTMENT ON THURSDAY. ANY WORSENING SYMPTOMS, PLEASE RETURN TO THE ER. Historical: - Allergies: Bactrim; - Home Meds: 1. none - PMHx: none; - PSHx: ; - Social history: Smoking status: Patient states was never smoker of tobacco. No barriers to communication noted, The patient speaks fluent German, Speaks appropriately for age. - Family history: Not pertinent. - : The pt / caregiver states he / she is not on anticoagulants. Home medication list is obtained from the patient. - Exposure Risk Screening:: None identified. PRESSER ALL AROUND: 04/26 18:41 LMP 03/15/2016, Verified, EDC 12/20/2016, Gestational age from LMP: 6 weeks 0 srm days Vital Signs: 18:25 BP 103 / 64; Pulse 83; Resp 17; Temp 97.2(T); Pulse Ox 100% on R/A; Weight 42.64 kg / lr2 94.01 lbs; Height 5 ft. 0 in. (152.40 cm); Pain 6/10; 20:43 BP 104 / 63; Pulse 74; Resp 18; Temp 98.7(O); Pulse Ox 95% on R/A; Pain 0/10; jmv 18:25 Body Mass Index 18.36 (42.64 kg, 152.40 cm) lr2 MDM: 19:00 Financial registration complete. gb 19:05 Hcg, Serum Quantitative Ordered. EDMS 20:03 [facility] Payment Agreement was scanned into [employer] and attached to record. gb Signatures: Dispatcher [employer] EDMS Carli Santoro, Kamaljit Guzman RN, RN RN cz Barnhardt, Gloria, Reg Reg gb Nicole Newell PA-C PA-C dt4 The chart was reviewed and I authenticate all verbal orders and agree with the evaluation and treatment provided.Attachments: 20:03 [facility] Payment Agreement gb MTDD
--- NOTE | 2016-04-26 20:51 | EDDOCDS ---
Nurse's Notes [facility] Name: Rosa Solorzano Age: 30 yrs Sex: Female : 1985 Arrival Date: 04/26/2016 Time: 18:23 Bed TR6 Private MD: Osiel Simon MD Diagnosis: state-FIRST TRIMESTER Presentation: 04/26 18:39 Presenting complaint: Patient states: seen here 2 days ago. ? ectopic. was sent here by [facility] michael for repeat HCG. left lower quad pain and diarrhea. Adult Sepsis Screening: The patient does not have new or worsening altered mentation. Patient's respiratory rate is less than 22. Systolic blood pressure is greater than 100. Patient has a qSOFA score of 0- Negative Sepsis Screen. Suicide/Homicide risk assessment- the patient denies having any suicidal and/or homicidal ideations and does not present with any other emotional, behavioral or mental health complaints. 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 Transition of care: patient was not received from another setting of care. 18:39 Acuity: KAREN Level 3 [facility] 18:39 Method Of Arrival: Walkin/Carried/Asstd [facility] Triage Assessment: 18:41 General: Appears in no apparent distress, Behavior is appropriate for age, cooperative. [facility] Pain: Pain currently is 6 out of 10 on a pain scale. HIV screening NA for this visit Offered previously. 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 none - PMHx: none; - PSHx: ; - Social history: Smoking status: Patient states was never smoker of tobacco. No barriers to communication noted, The patient speaks fluent Indonesian, Speaks appropriately for age. - Family history: Not pertinent. - : The pt / caregiver states he / she is not on anticoagulants. Home medication list is obtained from the patient. - Exposure Risk Screening:: None identified. Screenin:48 Screening information is obtained from the patient. Fall risk: No risks identified. cz Assistance ADL's: requires no assistance with activities of daily living. Abuse/DV Screen: The patient / caregiver reports he/she is: not in a situation that causes fear, pain or injury. Nutritional screening: No deficits noted. Advance Directives: Currently, there is no health care proxy. There is no active DNR order. There is no living will. There is no Power of Youth Officer. Advance directive information has not previously been placed in an [facility] medical record. Further advance directive information is declined. home support is adequate. Assessment: 20:48 Reassessment: Patient appears in no apparent distress at this time. Patient states cz symptoms have improved. Vital Signs: 18:25 BP 103 / 64; Pulse 83; Resp 17; Temp 97.2(T); Pulse Ox 100% on R/A; Weight 42.64 kg; lr2 Height 5 ft. 0 in. (152.40 cm); Pain 6/10; 20:43 BP 104 / 63; Pulse 74; Resp 18; Temp 98.7(O); Pulse Ox 95% on R/A; Pain 0/10; jmv 18:25 Body Mass Index 18.36 (42.64 kg, 152.40 cm) lr2 Vitals: 18:25 Log In Time: April 26, 2016 at 18:23. lr2 ED Course: 18:25 Patient visited by Lorrie Man. lr2 18:25 Osiel Simon is Private Physician. lr2 18:25 Patient moved to Waiting lr2 18:31 Patient moved to Pre RCE lr2 18:41 Triage Initiated srm 18:55 Nicole Newell [facility]-C [facility]. dt4 18:55 Sheron Dobbins MD is Attending Physician. dt4 18:55 Patient visited by Nicole Newell PA-C. dt4 18:55 Patient moved to Triage 3 dem1 19:13 Hcg, Serum Quantitative Sent. jmv 19:14 Patient moved to TR2 jmv 20:01 Patient name changed from Rosa\S\\S\Solorzano\S\ to Rosa\S\ \S\Solorzano. EDMS 20:03 [facility] Payment Agreement was scanned into [employer] and attached to record. gb 20:30 Ignacio Kapoor is Referral Physician. dt4 20:32 Patient moved to PD2 / 27 cj 20:44 Patient visited by Obi Adam PCA. jmv 20:47 Patient moved to TR6 cz 20:48 The patient / caregiver is instructed regarding the plan of care and ED course. cz 20:48 No IV's were initiated during this patient's visit. No procedures done that require cz assistance. Order Results: Lab Order: Hcg, Serum Quantitative; SPEC'M 04/26/16 19:13 Test: HCG, SERUM QUANTITATIVE; Value: 1641; Units: MIU/ML; Status: F Test Note: ; GESTATIONAL AGE APPROXIMATE HCG RANGE (MIU/ML) 0.2-1 WEEK 5-50 1-2 WEEKS 50-500 2-3 WEEKS 100-5,000 3-4 WEEKS 500-10,000 4-5 WEEKS 1,000-50,000 5-6 WEEKS 10,000-100,000 6-8 WEEKS 15,000-200,000 2-3 MONTHS 10,000-100,000 NON FEMALES LESS THAN 3.0 Patient samples may contain human heterophilic antibodies that could react with immunoassays to give falsely elevated or depressed results. This assay has been designed to minimize interference from heterophilic antibodies. Elevated hCG levels have also been associated with trophoblastic disease and nontrophoblastic neoplasms. The possibility of having these diseases should be considered before a diagnosis of is made. This test is not intended for use as a surrogate marker for aiding in the diagnosis or monitoring the treatment of cancer patients. [employer] methodology. Outcome: 20:31 Discharge ordered by Provider. dt4 20:49 Discharge Assessment: Patient awake, alert and oriented x 3. No cognitive and/or cz functional deficits noted. Patient verbalized understanding of disposition instructions. patient administered narcotics - no. The following High Risk Discharge criteria are identified: None. Discharged to home ambulatory. Condition: stable. Discharge instructions given to patient, Instructed on discharge instructions, follow up and referral plans. Demonstrated understanding of instructions, Pt was receptive of discharge instructions/ teaching. Property :Personal belongings accompany Pt. 20:50 No special radiology studies were completed. cz 20:50 Patient left the ED. cz Signatures: Dispatcher [employer] EDMS Carli Santoro RN RN srm Zecher, Calvin, RN RN Clary Gorman, Emily Cuevas Jane, RN RN [facility] Nicole Newell, GIA PALeticiaC dt4 Obi Adam, EDUCATIONAL COORDINATOR EDUCATIONAL COORDINATOR christopherv Lorrie Man lr2 MTDD
--- NOTE | 2016-04-28 21:51 | EDDOCDS ---
Physician Documentation [facility] Name: Rosa Solorzano Age: 30 yrs Sex: Female : 1985 Arrival Date: 04/26/2016 Time: 18:23 Bed TR6 Private MD: Osiel Simon MD Disposition: 04/26/16 20:31 Discharged to Home/Self Care. Impression: state - FIRST TRIMESTER. - Condition is Stable. - Discharge Instructions: First Trimester of . - Medication Reconciliation, Local Pharmacy Hours form. - Follow up: Emergency Department; When: As needed; Reason: Worsening of conditions. Follow up: Ignacio Guzman; When: Call to arrange an appointment; Reason: Wound/Symptom Recheck, Recheck today's complaints, Continuance of care. - Problem is new. - Symptoms are unchanged. - Notes: YOUR HCG TODAY WAS 1641. THIS IS DOUBLING LIKE A NORMAL HCG LEVEL SHOULD IN EARLY . PLEASE FOLLOW UP WITH DR. GUZMAN'S OFFICE AT YOUR SCHEDULED APPOINTMENT ON THURSDAY. ANY WORSENING SYMPTOMS, PLEASE RETURN TO THE ER. Historical: - Allergies: Bactrim; - Home Meds: 1. none - PMHx: none; - PSHx: ; - Social history: Smoking status: Patient states was never smoker of tobacco. No barriers to communication noted, The patient speaks fluent Frisian, Speaks appropriately for age. - Family history: Not pertinent. - : The pt / caregiver states he / she is not on anticoagulants. Home medication list is obtained from the patient. - Exposure Risk Screening:: None identified. MANAGER ENERGY: 04/26 18:41 LMP 03/15/2016, Verified, EDC 12/20/2016, Gestational age from LMP: 6 weeks 0 srm days Vital Signs: 18:25 BP 103 / 64; Pulse 83; Resp 17; Temp 97.2(T); Pulse Ox 100% on R/A; Weight 42.64 kg / lr2 94.01 lbs; Height 5 ft. 0 in. (152.40 cm); Pain 6/10; 20:43 BP 104 / 63; Pulse 74; Resp 18; Temp 98.7(O); Pulse Ox 95% on R/A; Pain 0/10; jmv 18:25 Body Mass Index 18.36 (42.64 kg, 152.40 cm) lr2 MDM: 19:00 Financial registration complete. gb 19:05 Hcg, Serum Quantitative Ordered. EDMS 20:03 [facility] Payment Agreement was scanned into [employer] and attached to record. gb 22:47 T-Sheet-- Draft Copy was scanned into MED[employer] and attached to record. klr Signatures: Dispatcher [employer] EDMS Carli Santoro RN RN srm Zecher, Calvin, RN RN cz Barnhardt, Gloria, Reg Reg gb Nicole Newell, Erlinda Cruz PA-C The chart was reviewed and I authenticate all verbal orders and agree with the evaluation and treatment provided.Attachments: 20:03 [facility] Payment Agreement gb 22:47 T-Sheet-- Draft Copy klr Chart Complete MTDD
--- NOTE | 2016-04-28 21:51 | EDDOCDS ---
Nurse's Notes [facility] Name: Rosa Solorzano Age: 30 yrs Sex: Female : 1985 Arrival Date: 04/26/2016 Time: 18:23 Bed TR6 Private MD: Osiel Simon MD Diagnosis: state-FIRST TRIMESTER Presentation: 04/26 18:39 Presenting complaint: Patient states: seen here 2 days ago. ? ectopic. was sent here by [facility]ichael for repeat HCG. left lower quad pain and diarrhea. Adult Sepsis Screening: The patient does not have new or worsening altered mentation. Patient's respiratory rate is less than 22. Systolic blood pressure is greater than 100. Patient has a qSOFA score of 0- Negative Sepsis Screen. Suicide/Homicide risk assessment- the patient denies having any suicidal and/or homicidal ideations and does not present with any other emotional, behavioral or mental health complaints. Status: Patient is not a patient services manager or dependent. Transition of care: patient was not received from another setting of care. 18:39 Acuity: KAREN Level 3 [facility] 18:39 Method Of Arrival: Walkin/Carried/Asstd [facility] Triage Assessment: 18:41 General: Appears in no apparent distress, Behavior is appropriate for age, cooperative. [facility] Pain: Pain currently is 6 out of 10 on a pain scale. HIV screening NA for this visit Offered previously. BILLING REP: 18:41 LMP 03/15/2016, Verified, EDC 12/20/2016, Gestational age from LMP: 6 weeks 0 srm days Historical: - Allergies: Bactrim; - Home Meds: 1. none - PMHx: none; - PSHx: ; - Social history: Smoking status: Patient states was never smoker of tobacco. No barriers to communication noted, The patient speaks fluent Persian, Speaks appropriately for age. - Family history: Not pertinent. - : The pt / caregiver states he / she is not on anticoagulants. Home medication list is obtained from the patient. - Exposure Risk Screening:: None identified. Screenin:48 Screening information is obtained from the patient. Fall risk: No risks identified. cz Assistance ADL's: requires no assistance with activities of daily living. Abuse/DV Screen: The patient / caregiver reports he/she is: not in a situation that causes fear, pain or injury. Nutritional screening: No deficits noted. Advance Directives: Currently, there is no health care proxy. There is no active DNR order. There is no living will. There is no Power of Business Services Sales Agent. Advance directive information has not previously been placed in an [facility] medical record. Further advance directive information is declined. home support is adequate. Assessment: 20:48 Reassessment: Patient appears in no apparent distress at this time. Patient states cz symptoms have improved. Vital Signs: 18:25 BP 103 / 64; Pulse 83; Resp 17; Temp 97.2(T); Pulse Ox 100% on R/A; Weight 42.64 kg; lr2 Height 5 ft. 0 in. (152.40 cm); Pain 6/10; 20:43 BP 104 / 63; Pulse 74; Resp 18; Temp 98.7(O); Pulse Ox 95% on R/A; Pain 0/10; jmv 18:25 Body Mass Index 18.36 (42.64 kg, 152.40 cm) lr2 Vitals: 18:25 Log In Time: April 26, 2016 at 18:23. lr2 ED Course: 18:25 Patient visited by Lorrie Man. lr2 18:25 Osiel Simon is Private Physician. lr2 18:25 Patient moved to Waiting lr2 18:31 Patient moved to Pre RCE lr2 18:41 Triage Initiated srm 18:55 Nicole Newell PA-C [facility]. dt4 18:55 Sheron Dobbins MD is Attending Physician. dt4 18:55 Patient visited by Nicole Newell PA-C. dt4 18:55 Patient moved to Triage 3 dem1 19:13 Hcg, Serum Quantitative Sent. jmv 19:14 Patient moved to TR2 jmv 20:01 Patient name changed from Rosa\S\\S\Solorzano\S\ to Rosa\S\ \S\Solorzano. EDMS 20:03 [facility] Payment Agreement was scanned into [employer] and attached to record. gb 20:30 Ignacio Kapoor is Referral Physician. dt4 20:32 Patient moved to PD2 / 27 cj 20:44 Patient visited by Obi Adam PCA. jmv 20:47 Patient moved to TR6 cz 20:48 The patient / caregiver is instructed regarding the plan of care and ED course. cz 20:48 No IV's were initiated during this patient's visit. No procedures done that require cz assistance. 22:47 T-Sheet-- Draft Copy was scanned into [employer] and attached to record. klr Order Results: Lab Order: Hcg, Serum Quantitative; SPEC'M 04/26/16 19:13 Test: HCG, SERUM QUANTITATIVE; Value: 1641; Units: MIU/ML; Status: F Test Note: ; GESTATIONAL AGE APPROXIMATE HCG RANGE (MIU/ML) 0.2-1 WEEK 5-50 1-2 WEEKS 50-500 2-3 WEEKS 100-5,000 3-4 WEEKS 500-10,000 4-5 WEEKS 1,000-50,000 5-6 WEEKS 10,000-100,000 6-8 WEEKS 15,000-200,000 2-3 MONTHS 10,000-100,000 NON FEMALES LESS THAN 3.0 Patient samples may contain human heterophilic antibodies that could react with immunoassays to give falsely elevated or depressed results. This assay has been designed to minimize interference from heterophilic antibodies. Elevated hCG levels have also been associated with trophoblastic disease and nontrophoblastic neoplasms. The possibility of having these diseases should be considered before a diagnosis of is made. This test is not intended for use as a surrogate marker for aiding in the diagnosis or monitoring the treatment of cancer patients. [employer]ens [employer] methodology. Outcome: 20:31 Discharge ordered by Provider. dt4 20:49 Discharge Assessment: Patient awake, alert and oriented x 3. No cognitive and/or cz functional deficits noted. Patient verbalized understanding of disposition instructions. patient administered narcotics - no. The following High Risk Discharge criteria are identified: None. Discharged to home ambulatory. Condition: stable. Discharge instructions given to patient, Instructed on discharge instructions, follow up and referral plans. Demonstrated understanding of instructions, Pt was receptive of discharge instructions/ teaching. Property :Personal belongings accompany Pt. 20:50 No special radiology studies were completed. cz 20:50 Patient left the ED. cz Signatures: Dispatcher [facility] Carli Santoro RN RN srm Zecher, Calvin, RN RN cz Clary Gorman, Reg Reg gb Emily Maciel dem1 Tina Xiong,RN RN cjNicole Guaman, GIA PAMaribeth pringle4 Erlinda Kaiser Jose, SOCK FOLDER SOCK FOLDER jmv Donovan, Lorrie lr2 Chart Complete MTDD
--- NOTE | 2016-04-28 21:51 | EDDOCDS ---
Physician Documentation [facility] Name: Rosa Solorzano Age: 30 yrs Sex: Female : 1985 Arrival Date: 04/26/2016 Time: 18:23 Bed TR6 Private MD: Osiel Simon MD Disposition: 04/26/16 20:31 Discharged to Home/Self Care. Impression: state - FIRST TRIMESTER. - Condition is Stable. - Discharge Instructions: First Trimester of . - Medication Reconciliation, Local Pharmacy Hours form. - Follow up: Emergency Department; When: As needed; Reason: Worsening of conditions. Follow up: Ignacio Guzman; When: Call to arrange an appointment; Reason: Wound/Symptom Recheck, Recheck today's complaints, Continuance of care. - Problem is new. - Symptoms are unchanged. - Notes: YOUR HCG TODAY WAS 1641. THIS IS DOUBLING LIKE A NORMAL HCG LEVEL SHOULD IN EARLY . PLEASE FOLLOW UP WITH DR. GUZMAN'S OFFICE AT YOUR SCHEDULED APPOINTMENT ON THURSDAY. ANY WORSENING SYMPTOMS, PLEASE RETURN TO THE ER. Historical: - Allergies: Bactrim; - Home Meds: 1. none - PMHx: none; - PSHx: ; - Social history: Smoking status: Patient states was never smoker of tobacco. No barriers to communication noted, The patient speaks fluent Thai, Speaks appropriately for age. - Family history: Not pertinent. - : The pt / caregiver states he / she is not on anticoagulants. Home medication list is obtained from the patient. - Exposure Risk Screening:: None identified. LEARNING TECHNOLOGIES SPECIALIST: 04/26 18:41 LMP 03/15/2016, Verified, EDC 12/20/2016, Gestational age from LMP: 6 weeks 0 srm days Vital Signs: 18:25 BP 103 / 64; Pulse 83; Resp 17; Temp 97.2(T); Pulse Ox 100% on R/A; Weight 42.64 kg / lr2 94.01 lbs; Height 5 ft. 0 in. (152.40 cm); Pain 6/10; 20:43 BP 104 / 63; Pulse 74; Resp 18; Temp 98.7(O); Pulse Ox 95% on R/A; Pain 0/10; jmv 18:25 Body Mass Index 18.36 (42.64 kg, 152.40 cm) lr2 MDM: 19:00 Financial registration complete. gb 19:05 Hcg, Serum Quantitative Ordered. EDMS 20:03 [facility] Payment Agreement was scanned into [employer] [place] and attached to record. gb 22:47 T-Sheet-- Draft Copy was scanned into MED[employer] and attached to record. klr Signatures: Dispatcher [employer] EDMS Carli Santoro RN RN srm Zecher, Calvin, RN RN cz Barnhardt, Gloria, Reg Reg gb Nicole Newell, Erlinda Cruz PA-C The chart was reviewed and I authenticate all verbal orders and agree with the evaluation and treatment provided.Attachments: 20:03 [facility] [place] Payment Agreement gb 22:47 T-Sheet-- Draft Copy klr Chart Complete MTDD
== END 2016-04-26 20:50 | disposition home or self-care (01) ==
LOC: M ED 18:23
DX: Z51.89 Encounter for other specified aftercare (principal); Z3A.01 Less than 8 weeks gestation of pregnancy; Z88.1 Allergy status to other antibiotic agents

== ENCOUNTER → 2016-04-28 | Outpatient (CLI) | payer OTHER | LOC: M WUC 18:22 | PROVIDERS: ATTEND Obstetrics & Gynecology | DX: O20.0 Threatened abortion (principal) ==

== ENCOUNTER → 2016-05-14 | Outpatient (CLI) | payer OTHER ==
[2016-05-14 19:38] LABS: BASO % 0.3 % (0.0-1.0); EOS # 0.1 K/mm3 (0.0-0.50); LARGE UNSTAINED CELL # 0.2 K/mm3 (0.0-0.4); LARGE UNSTAINED CELL % 1.8 % (0.0-4.0); LYMPH # 2.7 K/mm3 (1.5-6.5); LYMPH % 24.6 % (24.0-44.0); MEAN CORPUSCULAR HEMOGLOBIN 29.5 pg (27.0-33.0); MEAN CORPUSCULAR HGB CONC 32.3 g/dl (32.0-36.5); MEAN CORPUSCULAR VOLUME 91.4 fl (80.0-96.0); MONO # 0.5 K/mm3 (0.0-0.8); MONO % 4.3 % (0.0-5.0); NEUTROPHILS # 7.3 K/mm3 (1.8-7.7); PLATELET COUNT, AUTOMATED 299 k/mm3 (150-450); WHITE BLOOD COUNT 10.8 K/mm3 (4.0-10.0)
[2016-05-15 13:39] LABS: HIV SCRN NEGATIVE (NEGATIVE)
[2016-05-15 13:43] LABS: CONTROL LINE INT CTR LINE PRESENT; HIV SCRN1 NEGATIVE (NEGATIVE)
[2016-05-16 12:41] LABS: HBsAg Prenatal POSITIVE (NEGATIVE)
== END ==
LOC: M WUC 18:11
PROVIDERS: ATTEND Obstetrics & Gynecology
DX: Z34.81 Encounter for supervision of other normal pregnancy, first trimester (principal)

== ENCOUNTER → 2016-06-02 | Outpatient (CLI) | payer OTHER | LOC: M SMT 10:10 | PROVIDERS: ATTEND Obstetrics & Gynecology | DX: Z36 Encounter for antenatal screening of mother (principal) ==

== ENCOUNTER → 2016-06-09 | Outpatient (CLI) | payer OTHER ==
[2016-06-09 13:21] LABS: ALBUMIN 3.8 GM/DL (3.2-5.2); ALBUMIN/GLOBULIN RATIO 0.97 (1.00-1.93); ALKALINE PHOSPHATASE 46 U/L (45-117); ALT/SGPT 14 U/L (12-78); AST/SGOT 24 U/L (15-37); BILIRUBIN,DIRECT < 0.1 MG/DL (0.0-0.2); BILIRUBIN,TOTAL 0.4 MG/DL (0.2-1.0); TOTAL PROTEIN 7.7 GM/DL (6.4-8.2)
== END ==
LOC: M SMT 09:47
PROVIDERS: ATTEND Obstetrics & Gynecology
DX: B18.9 Chronic viral hepatitis, unspecified (principal)

== ENCOUNTER → 2016-08-04 | Outpatient (CLI) | payer OTHER ==
--- NOTE | 2016-08-04 10:49 | REP ---
Obstetric sonography: History: Supervision of for anatomy. Findings: Scanning through the gravid uterus demonstrates a viable single intrauterine gestation in a transverse head to the maternal left lie. motion is observed and heart rate is recorded at 141 beats per minute. An anterior grade 0 placenta is seen without evidence of previa. Amniotic fluid is subjectively normal. Closed cervical length is 4.2 cm viewed transabdominally. No extrauterine abnormalities observed. No anomaly is seen. The following anatomic structures are identified and felt to be sonographically unremarkable: cranium, choroid plexus, cavum, cerebellum and posterior fossa, face and profile, lungs, four-chamber heart with left and right ventricular outflow tract views, diaphragm, left-sided stomach, abdominal wall cord insertion, three-vessel umbilical cord, kidneys and bladder, spine, upper and lower extremities. Biometry chart: BPD 4.4 cm = 19 weeks 1 day Head circumference 15.9 cm = 18 weeks 5 days Abdominal circumference 14.1 cm = 19 weeks 3 days Femur length 3.1 cm = 19 weeks 3 days Humeral length 3.0 cm = 19 weeks 5 days Cerebellar diameter 1.8 cm = 18 weeks 0 days HC/AC ratio normal 1.13, cephalic index normal 0.77, estimated weight 289 grams, 0 pounds 10 ounces, 59th percentile for 19 weeks 0 days. Impression: Viable single intrauterine gestation at 19 weeks 0 days by today's composite criteria. OMAR by today's criteria December 29, 2016. No anomaly is seen. Signed by Frandy Garibay MD 08/04/2016 12:18 P
== END ==
LOC: M SMT 08:57
PROVIDERS: ATTEND Obstetrics & Gynecology
DX: Z36 Encounter for antenatal screening of mother (principal); Z3A.19 19 weeks gestation of pregnancy

== ENCOUNTER → 2016-10-07 | Outpatient (CLI) | payer OTHER ==
[~2016-10-07] MED LIST: COLA100C5 PO; IBUP80TA PO; OXYC1TAB23 PO; PRENTAB55 PO
[2016-10-07 13:31] LABS: MEAN CORPUSCULAR HEMOGLOBIN 31.9 pg (27.0-33.0); MEAN CORPUSCULAR HGB CONC 32.7 g/dl (32.0-36.5); MEAN CORPUSCULAR VOLUME 97.3 fl (80.0-96.0); RED CELL DISTRIBUTION WIDTH 12.6 % (11.5-14.5); WHITE BLOOD COUNT 11.1 K/mm3 (4.0-10.0)
[2016-10-07 13:48] LABS: ALBUMIN 2.9 GM/DL (3.2-5.2); ALBUMIN/GLOBULIN RATIO 0.85 (1.00-1.93); ALKALINE PHOSPHATASE 64 U/L (45-117); ALT/SGPT 11 U/L (12-78); AST/SGOT 19 U/L (15-37); BILIRUBIN,DIRECT < 0.1 MG/DL (0.0-0.2); BILIRUBIN,TOTAL 0.2 MG/DL (0.2-1.0); TOTAL PROTEIN 6.3 GM/DL (6.4-8.2)
== END ==
LOC: M SMT 09:21
PROVIDERS: ATTEND Obstetrics & Gynecology
DX: Z34.82 Encounter for supervision of other normal pregnancy, second trimester (principal); O34.211 Maternal care for low transverse scar from previous cesarean delivery

== ENCOUNTER → 2016-10-10 | Outpatient (CLI) | payer OTHER | LOC: M LAB 07:57 | PROVIDERS: ATTEND Obstetrics & Gynecology | DX: Z34.82 Encounter for supervision of other normal pregnancy, second trimester (principal) ==

== ENCOUNTER → 2016-12-04 | Outpatient (REF) | payer OTHER | LOC: M LAB REF 13:34 | PROVIDERS: ATTEND Obstetrics & Gynecology | DX: Z34.83 Encounter for supervision of other normal pregnancy, third trimester (principal) ==

== ENCOUNTER 2016-12-23 05:38 | Inpatient (IN) | payer OTHER ==
[~2016-12-23] VITALS: Ht 152.4 cm; Wt 58.0 kg
[2016-12-23] VITALS (7 sets, daily range): BP systolic 92–110; BP diastolic 56–71
[~2016-12-23 05:38] MED LIST changes: -COLA100C5 PO; -IBUP80TA PO; -OXYC1TAB23 PO
[2016-12-23] MEDS ORDERED: LR 1,000 ML IV ONE (06:15)
[2016-12-23] MEDS ORDERED: BICITRA 30ML SOLN UDC PO ONE (06:15)
[2016-12-23 06:24] LABS: BASO % 0.3 % (0.0-1.0); EOS # 0.1 10^3/uL (0.0-0.50); EOS % 1.4 % (0.0-3.0); IMMATURE GRANULOCYTE % 0.4 % (0-0); LYMPH # 2.6 10^3/uL (1.5-6.5); LYMPH % 27.8 % (24.0-44.0); MEAN CORPUSCULAR HEMOGLOBIN 29.4 pg (27.0-33.0); MEAN CORPUSCULAR HGB CONC 32.2 g/dl (32.0-36.5); MEAN CORPUSCULAR VOLUME 91.3 fl (80.0-96.0); MONO # 0.8 10^3/uL (0.0-0.8); MONO % 8.2 % (0.0-5.0); NEUTROPHILS # 5.8 10^3/uL (1.8-7.7); NEUTROPHILS % 61.9 % (36.0-66.0); PLATELET COUNT, AUTOMATED 303 10^3/uL (150-450); RED CELL DISTRIBUTION WIDTH 13.1 % (11.5-14.5); WHITE BLOOD COUNT 9.4 10^3/uL (4.0-10.0)
[2016-12-23] MEDS ORDERED: LR 1,000 ML IV SCH (06:30)
[2016-12-23] MEDS ORDERED: OXYTOCIN INJ 10 UNITS/ML VIAL (J2590) As Ordered ONE (07:14)
[2016-12-23] MEDS ORDERED: MORPHINE PRES-FREE INJ 10 MG/10 ML VIAL (J2274) As Ordered ONE (07:18)
[2016-12-23] MEDS ORDERED: ePHEDrine SULFATE 25 MG/5 ML(5MG/ML) SYRINGE As Ordered ONE (08:00)
[2016-12-23] MEDS ORDERED: PHENYLephrine HCL 500 MCG/5 ML (100MCG/ML) SYRINGE (J2370) As Ordered ONE (08:07)
[2016-12-23] MEDS ORDERED: diphenhydrAMINE INJ 50MG/ML VIAL (J1200) As Ordered ONE (09:04)
[2016-12-23] MEDS: LR 1,000 ML IV SCH ×2 (09:12→23:45)
[2016-12-23] MEDS ORDERED: RHOGAM 300 MCG (1500 IU) INJ (J2790) IM SCH (09:15)
[2016-12-23] MEDS ORDERED: ONDANSETRON 4MG/2ML VIAL (J2405) IV PRN ×2 (09:15→09:30)
[2016-12-23] MEDS ORDERED: PROMETHAZINE 25 MG TAB PO PRN (09:15)
[2016-12-23] MEDS ORDERED: PERCOCET 5MG/325MG TAB PO PRN (09:15)
[2016-12-23] MEDS ORDERED: MEASLES,MUMPS,RUBELLA VACCINE INJ (MMR-II) (90707) SC SCH (09:15)
[2016-12-23] MEDS ORDERED: KETOROLAC 30 MG/ML VIAL (J1885) IV PRN (09:30)
[2016-12-23] MEDS ORDERED: fentaNYL 100 MCG/2 ML INJECTION (J3010) IV PRN (09:30)
[2016-12-23] MEDS ORDERED: NALBUPHINE HCL 10 MG/ML AMP (J2300) IV PRN (09:30)
[2016-12-23] MEDS ORDERED: MEPERIDINE INJ 25 MG/ML VIAL (J2175) IV PRN (09:30)
[2016-12-23] MEDS: PRENATAL VITAMINS CHEWABLE TABLET PO SCH (11:30)
[2016-12-23] MEDS: DOCUSATE SODIUM 100 MG CAP PO SCH ×2 (11:30→21:36)
[2016-12-23] MEDS ORDERED: OXYC1TAB23 PO (12:06)
[2016-12-23] MEDS ORDERED: IBUP80TA PO (12:07)
[2016-12-23] MEDS ORDERED: COLA100C5 PO (12:08)
[2016-12-23] MEDS: KETOROLAC 30 MG/ML VIAL (J1885) IV SCH ×2 (16:02→21:39)
[2016-12-24 02:00] VITALS: BP 110/68
[2016-12-24] MEDS: KETOROLAC 30 MG/ML VIAL (J1885) IV SCH (03:42)
[2016-12-24 06:05] VITALS: BP 104/70
[2016-12-24 06:34] LABS: MEAN CORPUSCULAR HEMOGLOBIN 29.7 pg (27.0-33.0); MEAN CORPUSCULAR HGB CONC 32.1 g/dl (32.0-36.5); MEAN CORPUSCULAR VOLUME 92.5 fl (80.0-96.0); RED CELL DISTRIBUTION WIDTH 13.1 % (11.5-14.5); WHITE BLOOD COUNT 13.6 10^3/uL (4.0-10.0)
[2016-12-24] MEDS ORDERED: INFLUENZA QUADRIVALENT PF VACCINE 0.5ML SYRINGE (90686) IM ONE (09:00)
[2016-12-24] MEDS: PRENATAL VITAMINS CHEWABLE TABLET PO SCH (09:15)
[2016-12-24] MEDS: DOCUSATE SODIUM 100 MG CAP PO SCH ×2 (09:15→20:43)
[2016-12-24 10:09] VITALS: BP 105/62
[2016-12-24] MEDS: IBUPROFEN 800 MG TAB PO SCH ×2 (12:00→20:43)
[2016-12-24] MEDS ORDERED: SLF 3 ML SYR IV SCH (14:00)
[2016-12-24 14:11] VITALS: BP 106/78
[2016-12-24 17:36] VITALS: BP 134/71
[2016-12-24] MEDS: PERCOCET 5MG/325MG TAB PO PRN (19:35)
[2016-12-25] MEDS: IBUPROFEN 800 MG TAB PO SCH (04:00)
[2016-12-25 06:25] VITALS: BP 92/49
[2016-12-25] MEDS: PRENATAL VITAMINS CHEWABLE TABLET PO SCH (08:17)
[2016-12-25] MEDS: DOCUSATE SODIUM 100 MG CAP PO SCH (08:18)
[2016-12-25] MEDS: PERCOCET 5MG/325MG TAB PO PRN (08:19)
== END 2016-12-25 11:30 | disposition home or self-care (01) | DRG 540 ==
LOC: M LDI 05:38 → M OBS 10:58
PROVIDERS: ADMIT Obstetrics & Gynecology; ATTEND Obstetrics & Gynecology
PROC: 0UB70ZZ Excision of Bilateral Fallopian Tubes, Open Approach (ICD-10-PCS; 2016-12-23)
PROC: 10D00Z1 Extraction of Products of Conception, Low, Open Approach (ICD-10-PCS; principal; 2016-12-23 07:30)
DX: O34.211 Maternal care for low transverse scar from previous cesarean delivery (principal); Z30.2 Encounter for sterilization; Z37.0 Single live birth; Z3A.39 39 weeks gestation of pregnancy

== ENCOUNTER 2017-04-22 17:50 | Emergency (ER) | payer OTHER ==
[2017-04-22 18:36] LABS: KETONE, URINE AUTO RFX NEGATIVE (NEGATIVE); LEUKOCYTE ESTERASE UR AUTO RFX NEGATIVE (NEGATIVE); NITRITE, URINE AUTO RFX NEGATIVE (NEGATIVE); RBC, URINE AUTO RFX 0 /HPF (0-3); SPECIFIC GRAVITY UR AUTO RFX 1.001 (1.002-1.035); SQUAM EPITHELIAL CELL UR AURFX 0 /HPF (0-6); WBC, URINE AUTO RFX 0 /HPF (0-3)
[2017-04-22 18:43] LABS: BASO % 0.2 % (0.0-1.0); EOS # 0.1 10^3/uL (0.0-0.50); HEMATOCRIT 39.8 % (36.0-47.0); HEMOGLOBIN 12.8 g/dl (12.0-16.0); IMMATURE GRANULOCYTE % 0.2 % (0-0); LYMPH # 2.1 10^3/uL (1.5-6.5); LYMPH % 22.4 % (24.0-44.0); MEAN CORPUSCULAR HEMOGLOBIN 28.6 pg (27.0-33.0); MEAN CORPUSCULAR HGB CONC 32.2 g/dl (32.0-36.5); MEAN CORPUSCULAR VOLUME 88.8 fl (80.0-96.0); MONO # 0.5 10^3/uL (0.0-0.8); NEUTROPHILS # 6.7 10^3/uL (1.8-7.7); NEUTROPHILS % 71.2 % (36.0-66.0); PLATELET COUNT, AUTOMATED 350 10^3/uL (150-450); RED BLOOD COUNT 4.48 10^6/uL (4.00-5.40); RED CELL DISTRIBUTION WIDTH 11.9 % (11.5-14.5); WHITE BLOOD COUNT 9.4 10^3/uL (4.0-10.0)
[2017-04-22 18:54] LABS: CONTROL LINE UCG INT CTR LINE PRESENT; URINE PREG TEST NEGATIVE (NEGATIVE)
[2017-04-22 19:09] LABS: ANION GAP 5 MEQ/L (8-16); BLOOD UREA NITROGEN 11 MG/DL (7-18); CALCIUM LEVEL 9.2 MG/DL (8.5-10.1); CARBON DIOXIDE LEVEL 30 MEQ/L (21-32); CHLORIDE LEVEL 105 MEQ/L (98-107); CREATININE FOR GFR 0.48 MG/DL (0.55-1.30); GLOMERULAR FILTRATION RATE > 60.0 (>60); GLUCOSE, FASTING 76 MG/DL (70-100); POTASSIUM SERUM 3.7 MEQ/L (3.5-5.1); SODIUM LEVEL 140 MEQ/L (136-145)
[2017-04-22 21:32] LABS: CHLAMYDIA DNA AMPLIFICATION NEGATIVE (NEGATIVE); GC DNA AMPLIFICATION NEGATIVE (NEGATIVE)
== END 2017-04-22 20:06 | disposition home or self-care (01) ==
LOC: M ED 17:50
DX: N76.0 Acute vaginitis (principal); R11.2 Nausea with vomiting, unspecified; Z88.2 Allergy status to sulfonamides; Z88.8 Allergy status to other drugs, medicaments and biological substances
CPT/HCPCS: 76856

== ENCOUNTER → 2017-06-02 | Outpatient (CLI) | payer OTHER ==
[2017-06-02 14:01] LABS: CHLAMYDIA DNA AMPLIFICATION NEGATIVE (NEGATIVE); GC DNA AMPLIFICATION NEGATIVE (NEGATIVE)
[2017-06-02 14:16] LABS: BASO % 0.4 % (0.0-1.0); EOS # 0.2 10^3/uL (0.0-0.50); EOS % 2.6 % (0.0-3.0); HEMATOCRIT 40.9 % (36.0-47.0); HEMOGLOBIN 13.2 g/dl (12.0-16.0); IMMATURE GRANULOCYTE % 0.3 % (0-3.0); LYMPH # 1.8 10^3/uL (1.5-6.5); LYMPH % 24.8 % (24.0-44.0); MEAN CORPUSCULAR HEMOGLOBIN 29.1 pg (27.0-33.0); MEAN CORPUSCULAR HGB CONC 32.3 g/dl (32.0-36.5); MEAN CORPUSCULAR VOLUME 90.1 fl (80.0-96.0); MONO # 0.5 10^3/uL (0.0-0.8); MONO % 7.2 % (0.0-5.0); NEUTROPHILS # 4.8 10^3/uL (1.8-7.7); NEUTROPHILS % 64.7 % (36.0-66.0); PLATELET COUNT, AUTOMATED 326 10^3/uL (150-450); RED BLOOD COUNT 4.54 10^6/uL (4.00-5.40); WHITE BLOOD COUNT 7.4 10^3/uL (4.0-10.0)
[2017-06-02 14:48] LABS: FREE T4 1.01 NG/DL (0.76-1.46); THYROID STIMULATING HORMONE 0.906 uIU/ML (0.358-3.740)
== END ==
LOC: M SMT 09:19
DX: Z11.3 Encounter for screening for infections with a predominantly sexual mode of transmission (principal); N92.0 Excessive and frequent menstruation with regular cycle
CPT/HCPCS: 84443

== ENCOUNTER → 2017-06-15 | Outpatient (REF) | payer OTHER ==
[2017-06-15 12:32] LABS: C REACTIVE PROTEIN QUANTITATIV 0.45 MG/DL (0.00-0.30); CHOLESTEROL LEVEL 151 MG/DL (<200); CHOLESTEROL RISK RATIO 3.282 (<5); HDL CHOLESTEROL 46 MG/DL (>40); LDL CHOLESTEROL 79.8 MG/DL (<100); NON-HDL-C 105 MG/DL; TRIGLYCERIDES LEVEL 126 MG/DL (<150)
[2017-06-15 12:38] LABS: HEPATITIS B SURFACE ANTIBODY NEGATIVE (POSITIVE)
[2017-06-15 12:40] LABS: ALBUMIN 3.7 GM/DL (3.2-5.2); ALKALINE PHOSPHATASE 56 U/L (45-117); ALT/SGPT 17 U/L (12-78); ANION GAP 5 MEQ/L (8-16); AST/SGOT 22 U/L (7-37); BILIRUBIN,TOTAL 0.3 MG/DL (0.2-1.0); BLOOD UREA NITROGEN 12 MG/DL (7-18); CALCIUM LEVEL 9.1 MG/DL (8.5-10.1); CARBON DIOXIDE LEVEL 28 MEQ/L (21-32); CHLORIDE LEVEL 107 MEQ/L (98-107); CREATININE FOR GFR 0.46 MG/DL (0.55-1.30); GLOMERULAR FILTRATION RATE > 60.0 (>60); GLUCOSE, FASTING 78 MG/DL (70-100); POTASSIUM SERUM 4.1 MEQ/L (3.5-5.1); SODIUM LEVEL 140 MEQ/L (136-145); TOTAL PROTEIN 7.4 GM/DL (6.4-8.2)
[2017-06-15 13:17] LABS: HEPATITIS C VIRUS ABY INDEX < 0.0 INDEX (<0.8); HIV 1&2 SCREEN CENTAUR NEGATIVE (NEGATIVE)
[2017-06-15 13:20] LABS: HEPATITIS B SURFACE ANTIGEN POSITIVE (NEGATIVE)
[2017-06-16 16:02] LABS: CONTROL LINE HCG INT CTR LINE PRESENT; HCG, SERUM QUALITATIVE NEGATIVE (NEGATIVE)
[2017-06-17 10:13] LABS: HBsAG CONFIRM SCRN Confirm. indicated (Negative); HBsAG NEUTRALIZATION Positive (.)
[2017-06-19 00:07] LABS: D001-IgE D pteronyssinus <0.10 kU/L (Class 0); E001-IgE Cat Epith/Dander < 0.10 kU/L (Class 0); E005-IgE Dog Dander < 0.10 kU/L (Class 0); G002-IgE Bermuda Grass < 0.10 kU/L (Class 0); G008-IgE Kentucky Bluegrass < 0.10 kU/L (Class 0); HBV 50 IU/mL (.); M001-IgE Penicillium chrysogen < 0.10 kU/L (Class 0); M002 IgE Cladosporium herbaru < 0.10 kU/L (Class 0); M003 IgE Aspergillus fumigatu < 0.10 kU/L (Class 0); M006-IgE Alternaria alternata < 0.10 kU/L (Class 0); T001-IgE Maple/Box Elder < 0.10 kU/L (Class 0); T003-IgE Common Silver Birch < 0.10 kU/L (Class 0); T006-IgE Cedar, Mountain < 0.10 kU/L (Class 0); T007-IgE Oak, White < 0.10 kU/L (Class 0); T008-IgE Elm, American < 0.10 kU/L (Class 0); T015-IgE Ash, White < 0.10 kU/L (Class 0); T041-IgE Hickory, White < 0.10 kU/L (Class 0); T070-IgE White Mulberry < 0.10 kU/L (Class 0); W001-IgE Ragweed, Short < 0.10 kU/L (Class 0); W009-IgE Plantain, English < 0.10 kU/L (Class 0); W014-IgE Pigweed, Rough < 0.10 kU/L (Class 0); W018-IgE Sheep Sorrel < 0.10 kU/L (Class 0); log10 HBV IU/mL 1.699 log10IU/mL (.)
== END ==
LOC: M SFHCPLAZ 10:52
DX: Z77.21 Contact with and (suspected) exposure to potentially hazardous body fluids (principal); J30.9 Allergic rhinitis, unspecified; B19.10 Unspecified viral hepatitis B without hepatic coma; R11.0 Nausea
CPT/HCPCS: 84703

== ENCOUNTER 2017-07-30 20:24 | Emergency (ER) | payer OTHER ==
[2017-07-30] MEDS ORDERED: ISOVUE-370 76% 100ML VIAL (Q9967) As Ordered (20:29)
[2017-07-30 21:24] LABS: KETONE, URINE AUTO RFX NEGATIVE (NEGATIVE); LEUKOCYTE ESTERASE UR AUTO RFX NEGATIVE (NEGATIVE); MUCUS, URINE RFX MODERATE (NEGATIVE); NITRITE, URINE AUTO RFX NEGATIVE (NEGATIVE); RBC, URINE AUTO RFX 2 /HPF (0-3); SPECIFIC GRAVITY UR AUTO RFX 1.018 (1.002-1.035); SQUAM EPITHELIAL CELL UR AURFX 7 /HPF (0-6); WBC, URINE AUTO RFX 2 /HPF (0-3)
[2017-07-30 21:38] LABS: CONTROL LINE UCG INT CTR LINE PRESENT; URINE PREG TEST NEGATIVE (NEGATIVE)
[2017-07-30 21:40] LABS: BASO % 0.4 % (0.0-1.0); EOS # 0.2 10^3/uL (0.0-0.50); EOS % 1.8 % (0.0-3.0); HEMATOCRIT 37.8 % (36.0-47.0); HEMOGLOBIN 12.3 g/dl (12.0-15.5); IMMATURE GRANULOCYTE % 0.2 % (0-3.0); LYMPH # 3.2 10^3/uL (1.5-6.5); LYMPH % 37.8 % (24.0-44.0); MEAN CORPUSCULAR HEMOGLOBIN 29.7 pg (27.0-33.0); MEAN CORPUSCULAR HGB CONC 32.5 g/dl (32.0-36.5); MEAN CORPUSCULAR VOLUME 91.3 fl (80.0-96.0); MONO # 0.5 10^3/uL (0.0-0.8); MONO % 5.6 % (0.0-5.0); NEUTROPHILS # 4.5 10^3/uL (1.8-7.7); NEUTROPHILS % 54.2 % (36.0-66.0); PLATELET COUNT, AUTOMATED 283 10^3/uL (150-450); RED BLOOD COUNT 4.14 10^6/uL (4.00-5.40); RED CELL DISTRIBUTION WIDTH 12.2 % (11.5-14.5); WHITE BLOOD COUNT 8.4 10^3/uL (4.0-10.0)
[2017-07-30 22:03] LABS: ANION GAP 5 MEQ/L (8-16); BLOOD UREA NITROGEN 13 MG/DL (7-18); CALCIUM LEVEL 8.3 MG/DL (8.5-10.1); CARBON DIOXIDE LEVEL 26 MEQ/L (21-32); CHLORIDE LEVEL 110 MEQ/L (98-107); CREATININE FOR GFR 0.55 MG/DL (0.55-1.30); GLOMERULAR FILTRATION RATE > 60.0 (>60); GLUCOSE, FASTING 149 MG/DL (70-100); POTASSIUM SERUM 3.8 MEQ/L (3.5-5.1); SODIUM LEVEL 141 MEQ/L (136-145)
[2017-07-30 22:54] LABS: ESTIMATED AVERAGE GLUCOSE 108 MG/DL (60-110); HEMOGLOBIN A1c 5.4 %
[2017-07-30] MEDS: ONDANSETRON 4 MG ORAL DISINTEGRATING TAB (Q0162 PER 1MG) PO (23:01)
[2017-07-30] MEDS: SIMETHICONE 80 MG CHEW TAB PO (23:01)
== END 2017-07-30 23:04 | disposition home or self-care (01) ==
LOC: M ED 20:24
DX: A08.4 Viral intestinal infection, unspecified (principal); N88.8 Other specified noninflammatory disorders of cervix uteri; R73.9 Hyperglycemia, unspecified
CPT/HCPCS: Q0162

== ENCOUNTER → 2017-10-01 | Outpatient (REF) | payer OTHER ==
[2017-10-01 12:27] LABS: ESTIMATED AVERAGE GLUCOSE 117 MG/DL (60-110); HEMOGLOBIN A1c 5.7 %
[2017-10-01 12:30] LABS: ALBUMIN 3.8 GM/DL (3.2-5.2); ALBUMIN/GLOBULIN RATIO 1.03 (1.00-1.93); ALKALINE PHOSPHATASE 43 U/L (45-117); ALT/SGPT 17 U/L (12-78); ANION GAP 5 MEQ/L (8-16); AST/SGOT 18 U/L (7-37); BILIRUBIN,TOTAL 0.3 MG/DL (0.2-1.0); BLOOD UREA NITROGEN 16 MG/DL (7-18); CARBON DIOXIDE LEVEL 29 MEQ/L (21-32); CHLORIDE LEVEL 107 MEQ/L (98-107); CREATININE FOR GFR 0.54 MG/DL (0.55-1.30); GLOMERULAR FILTRATION RATE > 60.0 (>60); GLUCOSE, FASTING 93 MG/DL (70-100); POTASSIUM SERUM 4.5 MEQ/L (3.5-5.1); SODIUM LEVEL 141 MEQ/L (136-145); TOTAL PROTEIN 7.5 GM/DL (6.4-8.2)
[2017-10-02 08:55] LABS: HEPATITIS BE ANTIGEN Negative (Negative)
== END ==
LOC: M SFHCPLAZ 09:19
DX: B19.10 Unspecified viral hepatitis B without hepatic coma (principal); R81 Glycosuria
CPT/HCPCS: 80053

== ENCOUNTER → 2017-10-07 | Outpatient (CLI) | payer OTHER | LOC: M RAD 08:06 | DX: K76.9 Liver disease, unspecified (principal) | CPT/HCPCS: 76705 ==

== ENCOUNTER → 2017-10-26 | Outpatient (CLI) | payer OTHER ==
[~2017-10-26] MED LIST changes: +ISOVUE-370 76% 100ML VIAL (Q9967) As Ordered; -PRENTAB55 PO
== END ==
LOC: M RAD 08:15
DX: D18.09 Hemangioma of other sites (principal); K76.89 Other specified diseases of liver; B18.1 Chronic viral hepatitis B without delta-agent
CPT/HCPCS: Q9967

== ENCOUNTER → 2017-12-11 | Outpatient (REF) | payer OTHER ==
[2017-12-16 14:20] LABS: HPV HYBRID CAPTURE II Negative (Negative)
== END ==
LOC: M LAB REF 18:01
DX: Z12.4 Encounter for screening for malignant neoplasm of cervix (principal)

== ENCOUNTER → 2018-07-27 | Outpatient (REF) | payer BC ==
[~2018-07-27] MED LIST changes: +COLA100C5 PO; +FLAG500T PO; +IBUP80TA PO; -ISOVUE-370 76% 100ML VIAL (Q9967) As Ordered; +OXYC1TAB23 PO; +PRENTAB55 PO; +SIME1CAP PO; +WOMETAB4 PO; +ZOFR4TAB14 PO
[2018-07-27 12:23] LABS: ALT/SGPT 17 U/L (12-78); BILIRUBIN,DIRECT < 0.1 MG/DL (0.0-0.2); BILIRUBIN,TOTAL 0.3 MG/DL (0.2-1.0); CHOLESTEROL LEVEL 184 MG/DL (<200); CHOLESTEROL RISK RATIO 3.172 (<5); HDL CHOLESTEROL 58 MG/DL (>40); LDL CHOLESTEROL 113 MG/DL (<100); NON-HDL-C 126 MG/DL; TOTAL PROTEIN 7.5 GM/DL (6.4-8.2); TRIGLYCERIDES LEVEL 67 MG/DL (<150)
[2018-07-27 13:20] LABS: HEMOGLOBIN A1c 5.9 %
[2018-07-28 09:38] LABS: HEPATITIS B SURFACE ANTIBODY NEGATIVE (POSITIVE)
[2018-07-28 10:31] LABS: HEPATITIS B SURFACE ANTIGEN POSITIVE (NEGATIVE)
[2018-07-29 00:07] LABS: HEPATITIS BE ANTIBODY Negative (Negative); HEPATITIS BE ANTIGEN Positive (Negative)
[2018-07-29 14:27] LABS: HBV 1040 IU/mL (.); log10 HBV IU/mL 3.017 (.)
== END ==
LOC: M SFHCPLAZ 09:47
PROVIDERS: ATTEND Family Medicine
DX: Z13.1 Encounter for screening for diabetes mellitus (principal); Z13.6 Encounter for screening for cardiovascular disorders; B18.1 Chronic viral hepatitis B without delta-agent

== ENCOUNTER 2018-09-10 00:12 | Emergency (ER) | payer BC ==
[~2018-09-10] VITALS: Ht 152.4 cm; Wt 44.1 kg
[2018-09-10] MEDS ORDERED: ACET25TA12 PO (00:19)
[2018-09-10 00:57] LABS: BASO % 0.2 % (0.0-1.0); EOS # 0.1 10^3/uL (0.0-0.50); EOS % 0.4 % (0.0-3.0); HEMATOCRIT 38.3 % (36.0-47.0); HEMOGLOBIN 12.4 g/dl (12.0-15.5); LYMPH # 2.2 10^3/uL (1.5-4.5); LYMPH % 15.3 % (24.0-44.0); MEAN CORPUSCULAR HEMOGLOBIN 30.5 pg (27.0-33.0); MEAN CORPUSCULAR HGB CONC 32.4 g/dl (32.0-36.5); MEAN CORPUSCULAR VOLUME 94.3 fl (80.0-96.0); MONO # 0.7 10^3/uL (0.0-0.8); MONO % 4.8 % (0.0-5.0); NEUTROPHILS # 11.5 10^3/uL (1.8-7.7); PLATELET COUNT, AUTOMATED 237 10^3/uL (150-450); RED BLOOD COUNT 4.06 10^6/uL (4.00-5.40); WHITE BLOOD COUNT 14.6 10^3/uL (4.0-10.0)
[2018-09-10 01:02] LABS: AMORPHOUS SEDIMENT SMALL (NEGATIVE); APPEARANCE, URINE HAZY (CLEAR); BACTERIA, URINE AUTO NEGATIVE (NEGATIVE); BILIRUBIN, URINE AUTO NEGATIVE (NEGATIVE); BLOOD, URINE BLOOD NEGATIVE (NEGATIVE); COLOR, URINE YELLOW (YELLOW); GLUCOSE, URINE (UA) AUTO NEGATIVE (NEGATIVE); KETONE, URINE AUTO NEGATIVE (NEGATIVE); LEUKOCYTE ESTERASE, URINE AUTO NEGATIVE (NEGATIVE); MUCUS, URINE MODERATE (NEGATIVE); NITRITE, URINE AUTO NEGATIVE (NEGATIVE); PROTEIN, URINE AUTO NEGATIVE (NEGATIVE); RBC, URINE AUTO 2 /HPF (0-3); SQUAMOUS EPITHELIAL CELL UR AU 4 /HPF (0-6); UROBILINOGEN, URINE AUTO 0.2 mg/dL (0.0-2.0); WBC, URINE AUTO 2 /HPF (0-3)
[2018-09-10] MEDS ORDERED: ONDANSETRON 4MG/2ML VIAL (J2405) IV ONE (01:15)
[2018-09-10] MEDS ORDERED: DICYCLOMINE 10 MG CAP PO ONE (01:15)
[2018-09-10] MEDS ORDERED: NS 1,000 ML IV ONE (01:15)
[2018-09-10 01:21] LABS: BLOOD UREA NITROGEN 18 MG/DL (7-18); CALCIUM LEVEL 8.6 MG/DL (8.5-10.1); CARBON DIOXIDE LEVEL 28 MEQ/L (21-32); CHLORIDE LEVEL 106 MEQ/L (98-107); CREATININE FOR GFR 0.44 MG/DL (0.55-1.30); GLOMERULAR FILTRATION RATE > 60.0 (>60); GLUCOSE, FASTING 114 MG/DL (70-100); POTASSIUM SERUM 3.5 MEQ/L (3.5-5.1); SODIUM LEVEL 140 MEQ/L (136-145)
[2018-09-10] MEDS ORDERED: DICY10CA13 PO (02:01)
[2018-09-10] MEDS ORDERED: ZOFR4TAB16 PO (02:01)
[2018-09-10 02:14] VITALS: BP 103/51
--- NOTE | 2018-09-10 07:54 | REP ---
Acute abdominal series series including PA chest and supine upright abdomen: PA chest: Lung manning are clear. Cardiac size is normal. The adrian, mediastinum, skeletal structures are unremarkable. There is no free subdiaphragmatic air. Impression: Negative PA chest. Abdomen, supine upright views: The bowel gas pattern is normal. There are no calcifications. There is body piercing jewelry superimposed over the midabdomen. Impression: Normal bowel gas pattern. Electronically Signed by Héctor Day MD 09/10/2018 07:46 A
== END 2018-09-10 02:15 | disposition home or self-care (01) ==
LOC: M ED 00:12
DX: R10.30 Lower abdominal pain, unspecified (principal); R11.0 Nausea; K59.00 Constipation, unspecified; D72.829 Elevated white blood cell count, unspecified; Z88.2 Allergy status to sulfonamides
CPT/HCPCS: 36415; 74021; 80048; 81001; 84702; 85025; 96374; 99284; J2405

== ENCOUNTER → 2018-12-05 | Outpatient (CLI) | payer BC ==
[~2018-12-05] MED LIST changes: +ACET25TA12 PO; +DICY10CA13 PO; +ZOFR4TAB16 PO
[2018-12-05 18:30] LABS: ALBUMIN 4.3 GM/DL (3.2-5.2); ALT/SGPT 20 U/L (12-78); BILIRUBIN,TOTAL 0.5 MG/DL (0.2-1.0); BLOOD UREA NITROGEN 18 MG/DL (7-18); CALCIUM LEVEL 9.4 MG/DL (8.5-10.1); CARBON DIOXIDE LEVEL 27 MEQ/L (21-32); CHLORIDE LEVEL 104 MEQ/L (98-107); CHOLESTEROL LEVEL 171 MG/DL (<200); CREATININE FOR GFR 0.56 MG/DL (0.55-1.30); FREE T4 1.04 NG/DL (0.76-1.46); GLOMERULAR FILTRATION RATE > 60.0 (>60); GLUCOSE, FASTING 92 MG/DL (70-100); HDL CHOLESTEROL 57 MG/DL (>40); LDL CHOLESTEROL 99 MG/DL (<100); NON-HDL-C 114 MG/DL; POTASSIUM SERUM 4.1 MEQ/L (3.5-5.1); SODIUM LEVEL 138 MEQ/L (136-145); TRIGLYCERIDES LEVEL 75 MG/DL (<150)
[2018-12-05 18:36] LABS: HEMOGLOBIN A1c 5.6 %
[2018-12-06 10:43] LABS: TOTAL 25(OH) VITAMIN D 19.8 NG/ML (30.0-100.0)
[2018-12-06 10:45] LABS: HEPATITIS B SURFACE ANTIBODY NEGATIVE (POSITIVE)
[2018-12-06 11:06] LABS: HEPATITIS B SURFACE ANTIGEN POSITIVE (NEGATIVE)
[2018-12-10 00:06] LABS: HBV 3470 IU/mL (.); HEPATITIS BE ANTIBODY Negative (Negative); HEPATITIS BE ANTIGEN Positive (Negative)
== END ==
LOC: M WUC 10:51
PROVIDERS: ATTEND Obstetrics & Gynecology
DX: Z13.1 Encounter for screening for diabetes mellitus (principal); Z13.220 Encounter for screening for lipoid disorders; B18.1 Chronic viral hepatitis B without delta-agent

== ENCOUNTER → 2018-12-05 | Outpatient (CLI) | payer BC ==
[2018-12-05 18:17] LABS: BASO % 0.7 % (0.0-1.0); EOS # 0.1 10^3/uL (0.0-0.5); EOS % 1.8 % (0.0-3.0); HEMATOCRIT 42.7 % (36.0-47.0); HEMOGLOBIN 13.7 g/dl (12.0-15.5); LYMPH # 1.9 10^3/uL (1.5-5.0); LYMPH % 43.2 % (24.0-44.0); MEAN CORPUSCULAR HEMOGLOBIN 30.9 pg (27.0-33.0); MEAN CORPUSCULAR HGB CONC 32.1 g/dl (32.0-36.5); MEAN CORPUSCULAR VOLUME 96.2 fl (80.0-96.0); MONO # 0.2 10^3/uL (0.0-0.8); MONO % 5.3 % (0.0-5.0); NEUTROPHILS # 2.1 10^3/uL (1.5-8.5); NEUTROPHILS % 48.8 % (36.0-66.0); PLATELET COUNT, AUTOMATED 312 10^3/uL (150-450); RED BLOOD COUNT 4.44 10^6/uL (4.00-5.40); WHITE BLOOD COUNT 4.4 10^3/uL (4.0-10.0)
[2018-12-05 18:30] LABS: ALBUMIN 4.1 GM/DL (3.2-5.2); ALT/SGPT 20 U/L (12-78); BILIRUBIN,TOTAL 0.5 MG/DL (0.2-1.0); BLOOD UREA NITROGEN 18 MG/DL (7-18); CALCIUM LEVEL 9.3 MG/DL (8.5-10.1); CARBON DIOXIDE LEVEL 27 MEQ/L (21-32); CHLORIDE LEVEL 105 MEQ/L (98-107); CREATININE FOR GFR 0.58 MG/DL (0.55-1.30); FREE T4 1.03 NG/DL (0.76-1.46); GLOMERULAR FILTRATION RATE > 60.0 (>60); GLUCOSE, FASTING 94 MG/DL (70-100); POTASSIUM SERUM 4.3 MEQ/L (3.5-5.1); SODIUM LEVEL 140 MEQ/L (136-145); TOTAL PROTEIN 7.8 GM/DL (6.4-8.2)
== END ==
LOC: M WUC 10:54
PROVIDERS: ATTEND Physician Assistant
DX: R63.4 Abnormal weight loss (principal)

== ENCOUNTER 2019-04-29 18:16 | Emergency (ER) | payer BC ==
[~2019-04-29] VITALS: Ht 152.4 cm; Wt 43.2 kg
[2019-04-29 18:17] VITALS: BP 108/61
[2019-04-29] MEDS ORDERED: ACETAMINOPHEN 325 MG TAB PO ONE (19:00)
[2019-04-29] MEDS ORDERED: IBUPROFEN 800 MG TAB PO ONE (19:00)
--- NOTE | 2019-04-29 19:01 | REP ---
Clinical: Persistent cough . Comparison: None . Technique: PA and lateral. Findings: The mediastinum and cardiac silhouette are normal. The lung manning are clear and without acute consolidation, effusion, or pneumothorax. The skeletal structures are intact and normal. Impression: 1. No acute cardiopulmonary process. Electronically Signed by Brandon Daniels MD 04/29/2019 06:52 P
[2019-04-29 19:13] LABS: INFLUENZA A AMPLIFICATION NEGATIVE (NEGATIVE); INFLUENZA B AMPLIFICATION NEGATIVE (NEGATIVE)
== END 2019-04-29 19:36 | disposition home or self-care (01) ==
LOC: M ED 18:16
DX: J02.9 Acute pharyngitis, unspecified (principal); R09.81 Nasal congestion; Z88.1 Allergy status to other antibiotic agents

== ENCOUNTER → 2019-05-04 | Outpatient (CLI) | payer BC ==
[2019-05-07 00:07] LABS: HEPATITIS BE ANTIBODY Negative (Negative); HEPATITIS BE ANTIGEN Positive (Negative)
== END ==
LOC: M WUC 10:09
PROVIDERS: ATTEND Obstetrics & Gynecology
DX: B18.1 Chronic viral hepatitis B without delta-agent (principal)

== ENCOUNTER → 2019-05-04 | Outpatient (CLI) | payer BC ==
[2019-05-04 14:28] LABS: ALT/SGPT 16 U/L (12-78); BILIRUBIN,TOTAL 0.2 MG/DL (0.2-1.0); BLOOD UREA NITROGEN 12 MG/DL (7-18); CALCIUM LEVEL 9.7 MG/DL (8.5-10.1); CARBON DIOXIDE LEVEL 29 MEQ/L (21-32); CHLORIDE LEVEL 104 MEQ/L (98-107); CREATININE FOR GFR 0.55 MG/DL (0.55-1.30); GLOMERULAR FILTRATION RATE > 60.0 (>60); GLUCOSE, FASTING 101 MG/DL (70-100); POTASSIUM SERUM 3.9 MEQ/L (3.5-5.1); SODIUM LEVEL 140 MEQ/L (136-145); TOTAL PROTEIN 7.8 GM/DL (6.4-8.2)
[2019-05-04 14:37] LABS: TOTAL 25(OH) VITAMIN D 61.2 NG/ML (30.0-100.0)
[2019-05-04 14:46] LABS: HEMOGLOBIN A1c 5.5 %
== END ==
LOC: M WUC 10:06
PROVIDERS: ATTEND Family Medicine
DX: Z13.21 Encounter for screening for nutritional disorder (principal); R73.01 Impaired fasting glucose

== ENCOUNTER → 2019-05-09 | Outpatient (REF) | payer BC | LOC: M SFHCPLAZ 10:01 | PROVIDERS: ATTEND Family Medicine | DX: B18.1 Chronic viral hepatitis B without delta-agent (principal); R73.01 Impaired fasting glucose; Z13.220 Encounter for screening for lipoid disorders; Z53.9 Procedure and treatment not carried out, unspecified reason ==

== ENCOUNTER → 2019-08-11 | Outpatient (REF) | payer OTHER ==
[2019-08-11 10:48] LABS: BASO % 0.3 % (0.0-1.0); EOS # 0.2 10^3/uL (0.0-0.5); EOS % 2.8 % (0.0-3.0); HEMATOCRIT 39.1 % (36.0-47.0); HEMOGLOBIN 12.6 g/dl (12.0-15.5); LYMPH # 2.8 10^3/uL (1.5-5.0); LYMPH % 46.8 % (24.0-44.0); MEAN CORPUSCULAR HEMOGLOBIN 30.1 pg (27.0-33.0); MEAN CORPUSCULAR HGB CONC 32.2 g/dl (32.0-36.5); MEAN CORPUSCULAR VOLUME 93.5 fl (80.0-96.0); MONO # 0.4 10^3/uL (0.0-0.8); MONO % 7.2 % (0.0-5.0); NEUTROPHILS # 2.6 10^3/uL (1.5-8.5); NEUTROPHILS % 42.7 % (36.0-66.0); PLATELET COUNT, AUTOMATED 264 10^3/uL (150-450); RED BLOOD COUNT 4.18 10^6/uL (4.00-5.40)
[2019-08-11 10:58] LABS: ALBUMIN 3.8 GM/DL (3.2-5.2); ALT/SGPT 40 U/L (12-78); BILIRUBIN,TOTAL 0.5 MG/DL (0.2-1.0); BLOOD UREA NITROGEN 19 MG/DL (7-18); CALCIUM LEVEL 8.7 MG/DL (8.5-10.1); CARBON DIOXIDE LEVEL 29 MEQ/L (21-32); CHLORIDE LEVEL 108 MEQ/L (98-107); CHOLESTEROL LEVEL 167 MG/DL (<200); CREATININE FOR GFR 0.52 MG/DL (0.55-1.30); GLOMERULAR FILTRATION RATE > 60.0 (>60); GLUCOSE, FASTING 92 MG/DL (70-100); HDL CHOLESTEROL 46 MG/DL (>40); LDL CHOLESTEROL 105 MG/DL (<100); NON-HDL-C 121 MG/DL; SODIUM LEVEL 142 MEQ/L (136-145); TOTAL PROTEIN 7.4 GM/DL (6.4-8.2); TRIGLYCERIDES LEVEL 78 MG/DL (<150)
[2019-08-11 11:06] LABS: HEMOGLOBIN A1c 5.9 %
[2019-08-22 02:06] LABS: HBV 630 IU/mL (.); HEPATITIS BE ANTIBODY Positive (Negative); HEPATITIS BE ANTIGEN Negative (Negative); log10 HBV IU/mL 2.799 (.)
== END ==
LOC: M SFHCPLAZ 08:33
PROVIDERS: ATTEND Internal Medicine Infectious Disease
DX: B18.1 Chronic viral hepatitis B without delta-agent (principal); Z13.220 Encounter for screening for lipoid disorders

== ENCOUNTER → 2019-11-07 | Emergency (ER) | payer OTHER ==
[~2019-11-07] MED LIST changes: +AUGM875T28 PO; +KETO10TAB PO; +MYLA1SUS PO; +TURM500C PO; +VITMTA PO; +[UNRECOGNIZED DRUG - OTHER] PO; +[UNRECOGNIZED DRUG - OTHER] PO
== END | disposition home or self-care (01) ==
LOC: M ED 21:00
DX: R20.2 Paresthesia of skin (principal); E11.9 Type 2 diabetes mellitus without complications; Z88.1 Allergy status to other antibiotic agents

== ENCOUNTER → 2019-12-05 | Outpatient (CLI) | payer OTHER ==
[2019-12-05 17:37] LABS: HEMATOCRIT 38.1 % (36.0-47.0); HEMOGLOBIN 11.7 g/dl (12.0-15.5); MEAN CORPUSCULAR HEMOGLOBIN 28.5 pg (27.0-33.0); MEAN CORPUSCULAR HGB CONC 30.7 g/dl (32.0-36.5); MEAN CORPUSCULAR VOLUME 92.9 fl (80.0-96.0); PLATELET COUNT, AUTOMATED 322 10^3/uL (150-450); WHITE BLOOD COUNT 7.4 10^3/uL (4.0-10.0)
[2019-12-05 17:46] LABS: ALBUMIN 3.7 GM/DL (3.2-5.2); ALT/SGPT 20 U/L (12-78); BILIRUBIN,TOTAL 0.2 MG/DL (0.2-1.0); BLOOD UREA NITROGEN 15 MG/DL (7-18); CALCIUM LEVEL 8.7 MG/DL (8.5-10.1); CARBON DIOXIDE LEVEL 29 MEQ/L (21-32); CHLORIDE LEVEL 109 MEQ/L (98-107); CREATININE FOR GFR 0.57 MG/DL (0.55-1.30); GLOMERULAR FILTRATION RATE > 60.0 (>60); GLUCOSE, FASTING 97 MG/DL (70-100); POTASSIUM SERUM 4.1 MEQ/L (3.5-5.1); SODIUM LEVEL 142 MEQ/L (136-145); TOTAL PROTEIN 7.1 GM/DL (6.4-8.2)
[2019-12-05 18:07] LABS: HEMOGLOBIN A1c 5.8 %
== END ==
LOC: M PLALAB 14:14
PROVIDERS: ATTEND Physician Assistant
DX: R20.2 Paresthesia of skin (principal)

== ENCOUNTER 2019-12-07 22:32 | Emergency (ER) | payer OTHER ==
[~2019-12-07] VITALS: Ht 152.4 cm; Wt 43.2 kg
[~2019-12-07 22:32] MED LIST changes: -AUGM875T28 PO; -KETO10TAB PO; -MYLA1SUS PO; -TURM500C PO; -VITMTA PO; -[UNRECOGNIZED DRUG - OTHER] PO; -[UNRECOGNIZED DRUG - OTHER] PO
[2019-12-07] MEDS ORDERED: NS 500 ML IV ONE (23:00)
[2019-12-07 23:34] LABS: BASO % 0.2 % (0.0-1.0); EOS # 0.1 10^3/uL (0.0-0.5); EOS % 0.7 % (0.0-3.0); HEMATOCRIT 34.6 % (36.0-47.0); HEMOGLOBIN 10.9 g/dl (12.0-15.5); LYMPH % 23.6 % (24.0-44.0); MEAN CORPUSCULAR HEMOGLOBIN 28.6 pg (27.0-33.0); MEAN CORPUSCULAR HGB CONC 31.5 g/dl (32.0-36.5); MEAN CORPUSCULAR VOLUME 90.8 fl (80.0-96.0); MONO # 0.5 10^3/uL (0.0-0.8); MONO % 3.6 % (0.0-5.0); NEUTROPHILS # 9.1 10^3/uL (1.5-8.5); NEUTROPHILS % 71.6 % (36.0-66.0); PLATELET COUNT, AUTOMATED 271 10^3/uL (150-450); RED BLOOD COUNT 3.81 10^6/uL (4.00-5.40); WHITE BLOOD COUNT 12.7 10^3/uL (4.0-10.0)
[2019-12-08 00:03] LABS: ALBUMIN 3.6 GM/DL (3.2-5.2); ALT/SGPT 18 U/L (12-78); BILIRUBIN,DIRECT < 0.1 MG/DL (0.0-0.2); BILIRUBIN,TOTAL 0.4 MG/DL (0.2-1.0); LIPASE 853 U/L (73-393); TOTAL PROTEIN 6.9 GM/DL (6.4-8.2)
--- NOTE | 2019-12-08 01:12 | REPVR ---
PROCEDURE INFORMATION: Exam: US Abdomen, Limited; Right Upper Quadrant Exam date and time: 12/08/2019 12:41 AM Age: 34 years old Clinical indication: Abdominal pain; Additional info: Biliary colic, elevated lipase TECHNIQUE: Imaging protocol: US abdomen. Real time ultrasound with image documentation. Limited exam focused on the right upper quadrant. COMPARISON: LIVER US 10/07/2017 8:16 AM FINDINGS: Liver: Unremarkable. Gallbladder: Small amount of dependent sludge. No gallstones. No gallbladder wall thickening or pericholecystic fluid. Negative sonographic Peña's sign, as per the performing dehydrator tender. Common bile duct: No stones. No ductal dilatation. Pancreas: Unremarkable as visualized. Right kidney: No mass. No definite stones. No hydronephrosis. IMPRESSION: No acute sonographic findings. Electronically signed by: Brandon Valdez On 12/08/2019 01:12:16 AM
[2019-12-08] MEDS: GASTROGRAFIN SOLUTION 30ML PO SCH ×2 (01:25→02:27)
[2019-12-08] MEDS ORDERED: ISOVUE-370 76% 100ML VIAL As Ordered ONE (02:25)
--- NOTE | 2019-12-08 03:45 | REPVR ---
PROCEDURE INFORMATION: Exam: CT Abdomen And Pelvis With Contrast Exam date and time: 12/08/2019 12:47 AM Age: 34 years old Clinical indication: Abdominal pain; Generalized; Additional info: Abd pain, leukocytosis, known hemangiomas TECHNIQUE: Imaging protocol: Computed tomography of the abdomen and pelvis with intravenous contrast. Radiation optimization: All CT scans at this facility use at least one of these dose optimization techniques: automated exposure control; mA and/or kV adjustment per patient size (includes targeted exams where dose is matched to clinical indication); or iterative reconstruction. Contrast material: ISO; Contrast volume: 90 ml; Contrast route: INTRAVENOUS (IV); COMPARISON: CT ABD PELVIS W/O FOL BY WIT 01/28/2016 5:49 PM FINDINGS: Liver: Lesion in the superior left hepatic lobe measuring 2.2 x 2.6 cm with nodular peripheral enhancement consistent with hemangioma. There is a 2nd probable hemangioma in the posterior right hepatic lobe measuring 18 mm. Gallbladder and bile ducts: The gallbladder is somewhat contracted with no stones. Pancreas: Normal. No ductal dilation. Spleen: Normal. No splenomegaly. Adrenals: Normal. No mass. Kidneys and ureters: Normal. No hydronephrosis. Stomach and bowel: Mild stool throughout much of the colon. Appendix: The appendix measures up to 8 mm with question of slight surrounding induration. Borderline or early appendicitis is not excluded. Intraperitoneal space: Minimal fluid in the cul-de-sac with a Hounsfield measurement of 8 which is physiologic in amount. Vasculature: Unremarkable. No abdominal aortic aneurysm. Lymph nodes: Unremarkable. No enlarged lymph nodes. Bladder: Unremarkable as visualized. Reproductive: Right ovarian follicle measuring 19 x 19 x 20 mm. Bones/joints: Unremarkable. No acute fracture. Soft tissues: Unremarkable. IMPRESSION: 1. Slightly enlarged appendix measuring 8 mm with question of slight surrounding induration which may reflect borderline or early appendicitis. 2. Hepatic hemangiomas which were seen on 01/28/2016. 3. Right ovarian follicle measuring 19 x 19 x 20 mm. Electronically signed by: To Hartmann On 12/08/2019 03:44:51 AM
[2019-12-08] MEDS ORDERED: ONDANSETRON 4MG/2ML VIAL IV ONE (04:15)
[2019-12-08] MEDS ORDERED: MORPHINE 2 MG/ML 1ML VIAL (J2270) IV PRN (04:15)
[2019-12-08 04:23] LABS: BASO % 0.1 % (0.0-1.0); EOS % 0.1 % (0.0-3.0); HEMATOCRIT 35.7 % (36.0-47.0); HEMOGLOBIN 11.2 g/dl (12.0-15.5); LYMPH # 1.1 10^3/uL (1.5-5.0); MEAN CORPUSCULAR HEMOGLOBIN 28.4 pg (27.0-33.0); MEAN CORPUSCULAR HGB CONC 31.4 g/dl (32.0-36.5); MEAN CORPUSCULAR VOLUME 90.4 fl (80.0-96.0); MONO # 0.7 10^3/uL (0.0-0.8); MONO % 4.8 % (0.0-5.0); NEUTROPHILS # 12.1 10^3/uL (1.5-8.5); NEUTROPHILS % 86.7 % (36.0-66.0); PLATELET COUNT, AUTOMATED 272 10^3/uL (150-450); RED BLOOD COUNT 3.95 10^6/uL (4.00-5.40)
[2019-12-08] MEDS ORDERED: NS 1,000 ML IV SCH (05:45)
[2019-12-08] MEDS ORDERED: PIPERACILLIN/TAZOBACTAM SOD 3.375 GM in D5W MINI-BAG PLUS 50 ML IV ONE ×3 (05:45→12:00)
[2019-12-08] MEDS ORDERED: MYLA1SUS PO (06:15)
[2019-12-08] MEDS ORDERED: [UNRECOGNIZED DRUG - OTHER] PO (06:15)
[2019-12-08] MEDS ORDERED: [UNRECOGNIZED DRUG - OTHER] PO (06:15)
[2019-12-08] MEDS ORDERED: VITMTA PO (06:15)
[2019-12-08] MEDS ORDERED: TURM500C PO (06:15)
--- NOTE | 2019-12-08 09:23 | REPVR ---
PROCEDURE INFORMATION: Exam: US Pelvis Complete, Transabdominal and US Pelvis, Transvaginal and US Duplex Artery and Vein, Ovaries, Complete Exam date and time: 12/08/2019 8:44 AM Age: 34 years old Clinical indication: Pelvic pain; Additional info: Pelvic fluid/pain TECHNIQUE: Imaging protocol: Real-time transabdominal and transvaginal pelvic ultrasound (complete) with image documentation. Transvaginal imaging was used for better evaluation of the endometrium and adnexa. Real-time duplex ultrasound scan of the arterial and venous flow of the ovaries with B-mode, color Doppler flow and spectral waveform analysis. COMPARISON: US PELVIC NON-OB COMPLETE 07/30/2017 9:58 PM FINDINGS: Uterus/cervix: The uterus is retroflexed and measures 7.8 x 5.0 x 5.7 cm. No myometrial mass. Few nabothian cysts in the region of the cervix. The endometrium measures 12-13 mm in thickness, likely late proliferative/secretory phase. Right adnexa: Right ovary measures 3.7 x 2.7 x 4.1 cm and contains few small follicles as well as a 1.8 x 1.8 x 1.6 cm dominant follicle. Duplex blood flow within the right ovary with color Doppler and arterial/venous waveforms. No evidence of torsion. Left adnexa: Left ovary measures 2.8 x 2.0 x 2.7 cm and is unremarkable containing few small follicles. Duplex blood flow within the left ovary with color Doppler and arterial/venous waveforms. No evidence of torsion. Intraperitoneal space: Trace free fluid within the pelvis, likely physiologic. Bladder: Partially distended urinary bladder is unremarkable. IMPRESSION: 1. No acute abnormalities are identified. 2. Retroflexed uterus. 3. Small bilateral ovarian follicles as well as a 1.8 cm dominant follicle within the right ovary. Duplex blood flow is present within each ovary. No evidence of torsion. 4. Trace free fluid within the pelvis, likely physiologic. Electronically signed by: Brandon Ley On 12/08/2019 09:22:59 AM
[2019-12-08] MEDS ORDERED: AUGM875T28 PO (10:26)
[2019-12-08] MEDS ORDERED: KETO10TAB PO (10:26)
[2019-12-08] MEDS ORDERED: KETOROLAC 30 MG/ML 1ML VIAL IV ONE (10:30)
[2019-12-08 12:46] VITALS: BP 100/59
--- NOTE | 2019-12-09 07:50 | ER ---
DATE OF CONSULTATION: 12/08/2019 Patient is a 34-year-old female who presented with epigastric pain, approximately 12 hours to 18 hours prior to admission. Had some increasing pain. Came to the emergency room and noticed that this settled down in the suprapubic area. She has been afebrile; however, when her white count was checked it revealed elevated white count of 13,000 and rechecked it was 14,000. She does not complain of any right lower quadrant pain per se. It is mostly suprapubic, and actually the left suprapubic area she states is more uncomfortable than the right suprapubic area. In any case, has not had any diarrhea. No constipation. Has had a previous ovarian cyst in the past that ruptured; however, she states that this is different this time. MEDICAL HISTORY: Noncontributory. MEDICATIONS: None. PHYSICAL EXAMINATION: Reveals a 34-year-old female who looks stated age. HEENT: Unremarkable. NECK: Supple without adenopathy. LUNGS: Clear to auscultation without crackles, wheezes, or rhonchi. HEART: Regular without murmur. ABDOMEN: Soft, nondistended. Mildly tender to deep palpation in the left suprapubic and the right suprapubic area. EXTREMITIES: Warm and well perfused. The CT scan revealed an appendix that was on the upper side of normal, and I reviewed this with the radiologist this morning. He does not see any mural thickening. No periappendiceal inflammation. In addition, the patient does have some ovarian cysts, although not significantly large. There is a little bit of fluid in the cul-de-sac. IMPRESSION AND PLAN: Patient has abdominal pain in the suprapubic area; however, her white count elevated at 14,000 would suggest that she would have a much more inflammatory process associated with her appendix, and thus at this point, without any mural thickening, any periappendiceal inflammation, I feel that this is unlikely source of her infection, of her elevated white count. I have discussed multiple options with her, one of which is to observe her here over an interval time of 12-24 hours, but having sequential abdominal exams, possible repeated laboratory exams as one option. A second option to discharge home with followup in 24 hours with repeat labs/possible repeat evaluation here in emergency room as well as after a discussion, I feel that this is unlikely for appendicitis, that treatments for appendicitis are starting to utilize antibiotic therapy, and if this was an early appendicitis, it might be treated with this; however, there is a failure rate of approximately 20%-30%, depending on the group. Thus, she understands at this point and would prefer to be discharged home on pain medications instead of being watched here in the hospital and will return to the emergency room if there is any increasing pain, discomfort, or fevers or chills. In addition, I am not sure of the etiology of her white count elevation at this time, and she would like to trial antibiotics should infectious etiology be the possibility for this. I feel that that is not an unreasonable request at this time and thus will give her another dose of the Zosyn that she was getting a few hours ago and discharge her home with Augmentin. ZULY
== END 2019-12-08 12:47 | disposition home or self-care (01) ==
LOC: M ED 22:32
DX: K35.80 Unspecified acute appendicitis (principal); B18.0 Chronic viral hepatitis B with delta-agent; N85.4 Malposition of uterus; N83.01 Follicular cyst of right ovary; D18.03 Hemangioma of intra-abdominal structures; Z79.899 Other long term (current) drug therapy; Z88.2 Allergy status to sulfonamides
CPT/HCPCS: 74177; 76705; 76830; 76856; 80047; 80076; 81001; 83605; 83690; 84702; 85025; 93041; 93976; 96360; 96361; 96365; 96374; 96375; 96376; 99285; J1885; J2270; J2405; J2543; Q9963; Q9967

== ENCOUNTER → 2019-12-09 | Outpatient (CLI) | payer OTHER ==
[~2019-12-09] MED LIST changes: +AUGM875T28 PO; +KETO10TAB PO; +MYLA1SUS PO; +TURM500C PO; +VITMTA PO; +[UNRECOGNIZED DRUG - OTHER] PO; +[UNRECOGNIZED DRUG - OTHER] PO
[2019-12-09 13:33] LABS: BASO % 0.3 % (0.0-1.0); EOS # 0.1 10^3/uL (0.0-0.5); EOS % 1.5 % (0.0-3.0); HEMATOCRIT 37.2 % (36.0-47.0); HEMOGLOBIN 11.3 g/dl (12.0-15.5); LYMPH # 1.7 10^3/uL (1.5-5.0); LYMPH % 21.4 % (24.0-44.0); MEAN CORPUSCULAR HEMOGLOBIN 28.2 pg (27.0-33.0); MEAN CORPUSCULAR HGB CONC 30.4 g/dl (32.0-36.5); MEAN CORPUSCULAR VOLUME 92.8 fl (80.0-96.0); MONO # 0.4 10^3/uL (0.0-0.8); MONO % 5.1 % (0.0-5.0); NEUTROPHILS # 5.7 10^3/uL (1.5-8.5); NEUTROPHILS % 71.4 % (36.0-66.0); PLATELET COUNT, AUTOMATED 295 10^3/uL (150-450); RED BLOOD COUNT 4.01 10^6/uL (4.00-5.40); WHITE BLOOD COUNT 7.9 10^3/uL (4.0-10.0)
[2019-12-09 13:51] LABS: ALBUMIN 3.3 GM/DL (3.2-5.2); ALT/SGPT 17 U/L (12-78); BILIRUBIN,TOTAL 0.3 MG/DL (0.2-1.0); BLOOD UREA NITROGEN 12 MG/DL (7-18); CALCIUM LEVEL 8.6 MG/DL (8.5-10.1); CARBON DIOXIDE LEVEL 27 MEQ/L (21-32); CHLORIDE LEVEL 107 MEQ/L (98-107); CREATININE FOR GFR 0.52 MG/DL (0.55-1.30); GLOMERULAR FILTRATION RATE > 60.0 (>60); GLUCOSE, FASTING 127 MG/DL (70-100); LIPASE 243 U/L (73-393); SODIUM LEVEL 139 MEQ/L (136-145); TOTAL PROTEIN 6.7 GM/DL (6.4-8.2)
== END ==
LOC: M PLALAB 11:45
PROVIDERS: ATTEND Internal Medicine
DX: R10.9 Unspecified abdominal pain (principal)

== ENCOUNTER → 2020-02-06 | Outpatient (REF) | payer OTHER ==
[2020-02-06 11:26] LABS: HEMOGLOBIN A1c 5.7 %
[2020-02-09 06:08] LABS: HBV 620 IU/mL (.); log10 HBV IU/mL 2.792 (.)
== END ==
LOC: M SFHCPLAZ 09:08
PROVIDERS: ATTEND Internal Medicine Infectious Disease
DX: B18.1 Chronic viral hepatitis B without delta-agent (principal); E74.39 Other disorders of intestinal carbohydrate absorption

== ENCOUNTER → 2020-08-07 | Outpatient (REF) | payer OTHER ==
[2020-08-07 13:54] LABS: HEMOGLOBIN A1c 5.2 %
[2020-08-07 14:10] LABS: ALBUMIN 3.9 GM/DL (3.2-5.2); ALT/SGPT 15 U/L (12-78); BILIRUBIN,TOTAL 0.3 MG/DL (0.2-1.0); BLOOD UREA NITROGEN 17 MG/DL (7-18); CALCIUM LEVEL 9.1 MG/DL (8.5-10.1); CARBON DIOXIDE LEVEL 30 MEQ/L (21-32); CHLORIDE LEVEL 106 MEQ/L (98-107); CHOLESTEROL LEVEL 174 MG/DL (<200); CREATININE FOR GFR 0.42 MG/DL (0.55-1.30); GLOMERULAR FILTRATION RATE > 60.0 (>60); GLUCOSE, FASTING 99 MG/DL (70-100); HDL CHOLESTEROL 58 MG/DL (>40); LDL CHOLESTEROL 106 MG/DL (<100); NON-HDL-C 116 MG/DL; POTASSIUM SERUM 4.1 MEQ/L (3.5-5.1); SODIUM LEVEL 140 MEQ/L (136-145); TOTAL PROTEIN 7.2 GM/DL (6.4-8.2); TRIGLYCERIDES LEVEL 52 MG/DL (<150)
[2020-08-08 23:07] LABS: HBV 1440 IU/mL (.); log10 HBV IU/mL 3.158 (.)
== END ==
LOC: M SFHCPLAZ 09:31
PROVIDERS: ATTEND Internal Medicine Infectious Disease
DX: B18.1 Chronic viral hepatitis B without delta-agent (principal); E55.9 Vitamin D deficiency, unspecified

== ENCOUNTER → 2020-10-25 | Outpatient (REF) | payer OTHER | LOC: M SFHCWAGY 14:24 | PROVIDERS: ATTEND Nurse Practitioner Women's Health | DX: Z12.4 Encounter for screening for malignant neoplasm of cervix (principal); Z77.9 Other contact with and (suspected) exposures hazardous to health ==

== ENCOUNTER → 2021-02-06 | Outpatient (CLI) | payer OTHER ==
[2021-02-06 13:44] LABS: ALBUMIN 3.7 GM/DL (3.2-5.2); BILIRUBIN,DIRECT 0.1 MG/DL (0.0-0.2); BILIRUBIN,TOTAL 0.4 MG/DL (0.2-1.0); TOTAL PROTEIN 7.1 GM/DL (6.4-8.2)
[2021-02-06 13:52] LABS: HEMOGLOBIN A1c 5.3 %
[2021-02-07 19:10] LABS: HBV 1280 IU/mL (.); HEPATITIS BE ANTIBODY Negative (Negative); HEPATITIS BE ANTIGEN Negative (Negative); log10 HBV IU/mL 3.107 (.)
== END ==
LOC: M PLALAB 10:03
PROVIDERS: ATTEND Family Medicine
DX: B18.1 Chronic viral hepatitis B without delta-agent (principal); E74.39 Other disorders of intestinal carbohydrate absorption

== ENCOUNTER → 2021-04-22 | Outpatient (CLI) | payer OTHER ==
[2021-04-22 12:50] LABS: MEAN CORPUSCULAR HEMOGLOBIN 29.3 pg (27.0-33.0); MEAN CORPUSCULAR HGB CONC 31.7 g/dl (32.0-36.5); MEAN CORPUSCULAR VOLUME 92.3 fl (80.0-96.0); PLATELET COUNT, AUTOMATED 270 10^3/uL (150-450); RED BLOOD COUNT 4.44 10^6/uL (4.00-5.40); WHITE BLOOD COUNT 5.7 10^3/uL (4.0-10.0)
[2021-04-22 13:23] LABS: FREE T4 1.07 NG/DL (0.76-1.46); THYROID STIMULATING HORMONE 1.18 uIU/ML (0.358-3.740)
== END ==
LOC: M PLALAB 11:19
PROVIDERS: ATTEND Family Medicine
DX: F41.1 Generalized anxiety disorder (principal)

== ENCOUNTER → 2021-04-22 | Outpatient (REF) | payer OTHER | LOC: M SFHCPLAZ 11:13 | PROVIDERS: ATTEND Family Medicine | DX: F41.1 Generalized anxiety disorder (principal); Z53.9 Procedure and treatment not carried out, unspecified reason ==

== ENCOUNTER → 2021-09-16 | Outpatient (CLI) | payer OTHER ==
[2021-09-16 13:46] LABS: BASO % 0.3 % (0.0-1.0); EOS # 0.4 10^3/uL (0.0-0.5); EOS % 5.9 % (0.0-3.0); HEMATOCRIT 40.7 % (36.0-47.0); HEMOGLOBIN 12.9 g/dl (12.0-15.5); LYMPH # 2.1 10^3/uL (1.5-5.0); LYMPH % 33.7 % (24.0-44.0); MEAN CORPUSCULAR HEMOGLOBIN 30.1 pg (27.0-33.0); MEAN CORPUSCULAR HGB CONC 31.7 g/dl (32.0-36.5); MEAN CORPUSCULAR VOLUME 95.1 fl (80.0-96.0); MONO # 0.4 10^3/uL (0.0-0.8); MONO % 5.9 % (2.0-8.0); NEUTROPHILS # 3.4 10^3/uL (1.5-8.5); NEUTROPHILS % 53.9 % (36.0-66.0); PLATELET COUNT, AUTOMATED 287 10^3/uL (150-450); RED BLOOD COUNT 4.28 10^6/uL (4.00-5.40); WHITE BLOOD COUNT 6.3 10^3/uL (4.0-10.0)
[2021-09-16 15:50] LABS: ALBUMIN 3.8 GM/DL (3.2-5.2); ALT/SGPT 12 U/L (12-78); BILIRUBIN,TOTAL 0.2 MG/DL (0.2-1.0); BLOOD UREA NITROGEN 15 MG/DL (7-18); CALCIUM LEVEL 9.1 MG/DL (8.5-10.1); CARBON DIOXIDE LEVEL 29 MEQ/L (21-32); CHLORIDE LEVEL 105 MEQ/L (98-107); CHOLESTEROL LEVEL 176 MG/DL (<200); CREATININE FOR GFR 0.56 MG/DL (0.55-1.30); GLOMERULAR FILTRATION RATE > 60.0 (>60); GLUCOSE, FASTING 101 MG/DL (70-100); HDL CHOLESTEROL 55 MG/DL (>40); LDL CHOLESTEROL 108 MG/DL (<100); NON-HDL-C 121 MG/DL; POTASSIUM SERUM 4.1 MEQ/L (3.5-5.1); SODIUM LEVEL 138 MEQ/L (136-145); TOTAL PROTEIN 7.3 GM/DL (6.4-8.2); TRIGLYCERIDES LEVEL 66 MG/DL (<150)
[2021-09-16 16:43] LABS: TOTAL 25(OH) VITAMIN D 31.4 NG/ML (30.0-100.0)
[2021-09-16 18:09] LABS: HEMOGLOBIN A1c 5.4 %
[2021-09-18 16:08] LABS: HBV 1380 IU/mL (.)
== END ==
LOC: M PLALAB 09:55
PROVIDERS: ATTEND Internal Medicine Infectious Disease
DX: E74.39 Other disorders of intestinal carbohydrate absorption (principal); E55.9 Vitamin D deficiency, unspecified; B18.1 Chronic viral hepatitis B without delta-agent

== ENCOUNTER → 2022-05-09 | Outpatient (REF) | payer OTHER ==
[~2022-05-09] MED LIST changes: +CITA10TA7; +MACR100C43 PO; +PYRI1TAB5 PO
== END ==
LOC: M SFHCPLAZ 10:29
PROVIDERS: ATTEND Family Medicine
DX: B18.1 Chronic viral hepatitis B without delta-agent (principal); E55.9 Vitamin D deficiency, unspecified; E74.39 Other disorders of intestinal carbohydrate absorption; F41.1 Generalized anxiety disorder; Z13.220 Encounter for screening for lipoid disorders; Z53.9 Procedure and treatment not carried out, unspecified reason

== ENCOUNTER 2022-05-12 20:19 | Emergency (ER) | payer OTHER ==
[~2022-05-12] VITALS: Ht 152.4 cm; Wt 45.5 kg
[~2022-05-12 20:19] MED LIST changes: -CITA10TA7; -MACR100C43 PO; -PYRI1TAB5 PO
[2022-05-12 20:20] VITALS: BP 117/72
[2022-05-12] MEDS ORDERED: CITA10TA7 (20:31)
[2022-05-12 20:52] LABS: APPEARANCE, URINE HAZY (CLEAR); BACTERIA, URINE AUTO 1+ (NEGATIVE); BILIRUBIN, URINE AUTO NEGATIVE (NEGATIVE); BLOOD, URINE BLOOD 2+ (NEGATIVE); COLOR, URINE YELLOW (YELLOW); GLUCOSE, URINE (UA) AUTO NEGATIVE (NEGATIVE); KETONE, URINE AUTO NEGATIVE (NEGATIVE); LEUKOCYTE ESTERASE, URINE AUTO 2+ (NEGATIVE); MUCUS, URINE SMALL (NEGATIVE); NITRITE, URINE AUTO NEGATIVE (NEGATIVE); PROTEIN, URINE AUTO 1+ mg/dL (NEGATIVE); RBC, URINE AUTO 45 /HPF (0-3); SPECIFIC GRAVITY URINE AUTO 1.016 (1.002-1.035); SQUAMOUS EPITHELIAL CELL UR AU 1 /HPF (0-6); UROBILINOGEN, URINE AUTO 0.2 mg/dL (0.0-2.0); WBC, URINE AUTO 51 /HPF (0-3)
[2022-05-13] MEDS ORDERED: PYRI1TAB5 PO (00:28)
[2022-05-13] MEDS ORDERED: MACR100C43 PO (00:28)
[2022-05-13] MEDS ORDERED: NITROFURANTOIN (MACROBID) 100 MG CAP PO ONE (00:30)
== END 2022-05-13 01:25 | disposition home or self-care (01) ==
LOC: M ED 20:19
DX: N39.0 Urinary tract infection, site not specified (principal); Z88.2 Allergy status to sulfonamides; Z79.891 Long term (current) use of opiate analgesic; Z79.899 Other long term (current) drug therapy

== ENCOUNTER → 2022-07-29 | Outpatient (CLI) | payer OTHER ==
[~2022-07-29] MED LIST changes: +CITA10TA7; +MACR100C43 PO; +PYRI1TAB5 PO
[2022-07-29 15:15] LABS: HEMOGLOBIN A1c 5.4 % (4.0-6.0)
[2022-07-29 15:31] LABS: ALBUMIN 3.8 G/DL (3.2-5.2); ALKALINE PHOSPHATASE 36 U/L (46-116); ALT/SGPT 15 U/L (7.0-40); AST/SGOT 29 U/L (<34); BILIRUBIN,TOTAL 0.4 MG/DL (0.3-1.2); BLOOD UREA NITROGEN 12 MG/DL (9-23); CALCIUM LEVEL 8.7 MG/DL (8.5-10.1); CARBON DIOXIDE LEVEL 26 MMOL/L (20-31); CHLORIDE LEVEL 108 MMOL/L (98-107); CHOLESTEROL LEVEL 197 MG/DL (<200); CREATININE FOR GFR 0.47 MG/DL (0.55-1.30); GLOMERULAR FILTRATION RATE > 60.0 (>60); GLUCOSE, FASTING 91 MG/DL (60-100); HDL CHOLESTEROL 50.4 MG/DL (>40); LDL CHOLESTEROL 125.2 MG/DL (<100); NON-HDL-C 146.6 MG/DL; POTASSIUM SERUM 4.1 MMOL/L (3.5-5.1); SODIUM LEVEL 139 MMOL/L (136-145); THYROID STIMULATING HORMONE 0.698 uIU/ML (0.55-4.78); TOTAL 25(OH) VITAMIN D 24.1 NG/ML (20.0-100.0); TOTAL PROTEIN 6.8 G/DL (5.7-8.2); TRIGLYCERIDES LEVEL 107 MG/DL (<150)
[2022-07-29 16:02] LABS: HEPATITIS B SURFACE ANTIGEN POSITIVE (NEGATIVE)
[2022-07-30 20:12] LABS: HBV 960 IU/mL (.); HEPATITIS BE ANTIBODY Negative (Negative); HEPATITIS BE ANTIGEN Negative (Negative); INSULIN LEVEL 8.5 uIU/mL (2.6-24.9); log10 HBV IU/mL 2.982 (.)
== END ==
LOC: M PLALAB 10:19
PROVIDERS: ATTEND Family Medicine
DX: B18.1 Chronic viral hepatitis B without delta-agent (principal)

== ENCOUNTER → 2023-04-06 | Outpatient (CLI) | payer BC ==
[~2023-04-06] MED LIST changes: +DICY-61 PO; -DICY10CA13 PO
[2023-04-06 12:33] LABS: ALBUMIN 3.7 G/DL (3.2-5.2); ALKALINE PHOSPHATASE 35 U/L (46-116); ALT/SGPT 13 U/L (7.0-40); AST/SGOT 16 U/L (<34); BILIRUBIN,TOTAL 0.4 MG/DL (0.3-1.2); BLOOD UREA NITROGEN 15 MG/DL (9-23); CARBON DIOXIDE LEVEL 28 MMOL/L (20-31); CHLORIDE LEVEL 106 MMOL/L (98-107); CREATININE FOR GFR 0.46 MG/DL (0.55-1.30); GLOMERULAR FILTRATION RATE > 60.0 (>60); GLUCOSE, FASTING 99 MG/DL (60-100); POTASSIUM SERUM 4.2 MMOL/L (3.5-5.1); SODIUM LEVEL 138 MMOL/L (136-145); TOTAL PROTEIN 6.9 G/DL (5.7-8.2)
[2023-04-06 12:35] LABS: TOTAL 25(OH) VITAMIN D 25.8 NG/ML (20.0-100.0)
[2023-04-06 12:39] LABS: HEMOGLOBIN A1c 5.5 % (4.0-6.0)
[2023-04-07 20:10] LABS: HBV 3070 IU/mL (.); log10 HBV IU/mL 3.487 (.)
== END ==
LOC: M PLALAB 08:53
PROVIDERS: ATTEND Internal Medicine Infectious Disease
DX: B18.1 Chronic viral hepatitis B without delta-agent (principal); E74.39 Other disorders of intestinal carbohydrate absorption; E55.9 Vitamin D deficiency, unspecified

== ENCOUNTER → 2023-04-06 | Outpatient (CLI) | payer BC | LOC: M WHC 08:49 | PROVIDERS: ATTEND Internal Medicine Infectious Disease | DX: B18.1 Chronic viral hepatitis B without delta-agent (principal); D18.03 Hemangioma of intra-abdominal structures ==

== ENCOUNTER → 2023-05-07 | Outpatient (CLI) | payer BC ==
[2023-05-07 18:04] LABS: BASO % 0.6 % (0.0-1.0); EOS # 0.3 10^3/uL (0.0-0.5); EOS % 3.8 % (0.0-3.0); HEMOGLOBIN 12.6 g/dl (12.0-15.5); LYMPH # 1.5 10^3/uL (1.5-5.0); LYMPH % 22.9 % (24.0-44.0); MEAN CORPUSCULAR HEMOGLOBIN 29.8 pg (27.0-33.0); MEAN CORPUSCULAR HGB CONC 32.3 g/dl (32.0-36.5); MEAN CORPUSCULAR VOLUME 92.2 fl (80.0-96.0); MONO # 0.6 10^3/uL (0.0-0.8); MONO % 9.1 % (2.0-8.0); NEUTROPHILS # 4.2 10^3/uL (1.5-8.5); NEUTROPHILS % 63.4 % (36.0-66.0); PLATELET COUNT, AUTOMATED 281 10^3/uL (150-450); RED BLOOD COUNT 4.23 10^6/uL (4.00-5.40); WHITE BLOOD COUNT 6.6 10^3/uL (4.0-10.0)
[2023-05-07 18:10] LABS: ERYTHROCYTE SEDIMENTATION RATE 48 mm/hr (0-20)
[2023-05-07 18:36] LABS: ALBUMIN 3.8 G/DL (3.2-5.2); ALKALINE PHOSPHATASE 44 U/L (46-116); ALT/SGPT 12 U/L (7.0-40); AST/SGOT 15 U/L (<34); BILIRUBIN,TOTAL 0.4 MG/DL (0.3-1.2); BLOOD UREA NITROGEN 18 MG/DL (9-23); CALCIUM LEVEL 8.5 MG/DL (8.5-10.1); CARBON DIOXIDE LEVEL 28 MMOL/L (20-31); CHLORIDE LEVEL 107 MMOL/L (98-107); CREATININE FOR GFR 0.44 MG/DL (0.55-1.30); GLOMERULAR FILTRATION RATE > 60.0 (>60); GLUCOSE, FASTING 100 MG/DL (60-100); SODIUM LEVEL 140 MMOL/L (136-145); TOTAL PROTEIN 7.2 G/DL (5.7-8.2)
[2023-05-07 18:38] LABS: RHEUMATOID FACTOR QUANT < 3.5 IU/ML (<14)
== END ==
LOC: M PLALAB 16:33
PROVIDERS: ATTEND Family Medicine
DX: M79.641 Pain in right hand (principal); M25.511 Pain in right shoulder; M54.6 Pain in thoracic spine

== ENCOUNTER → 2023-05-08 | Outpatient (REF) | payer BC | LOC: M LAB REF 12:39 | PROVIDERS: ATTEND Nurse Practitioner Family | DX: Z12.4 Encounter for screening for malignant neoplasm of cervix (principal) ==

== ENCOUNTER → 2023-10-26 | Outpatient (CLI) | payer BC ==
[2023-10-26 15:23] LABS: BASO % 0.6 % (0.0-1.0); EOS # 0.1 10^3/uL (0.0-0.5); EOS % 1.7 % (0.0-3.0); HEMATOCRIT 39.4 % (36.0-47.0); HEMOGLOBIN 12.4 g/dl (12.0-15.5); LYMPH # 2.2 10^3/uL (1.5-5.0); LYMPH % 40.4 % (24.0-44.0); MEAN CORPUSCULAR HEMOGLOBIN 29.2 pg (27.0-33.0); MEAN CORPUSCULAR HGB CONC 31.5 g/dl (32.0-36.5); MEAN CORPUSCULAR VOLUME 92.9 fl (80.0-96.0); MONO # 0.3 10^3/uL (0.0-0.8); MONO % 5.8 % (2.0-8.0); NEUTROPHILS # 2.8 10^3/uL (1.5-8.5); NEUTROPHILS % 51.5 % (36.0-66.0); PLATELET COUNT, AUTOMATED 293 10^3/uL (150-450); RED BLOOD COUNT 4.24 10^6/uL (4.00-5.40); WHITE BLOOD COUNT 5.3 10^3/uL (4.0-10.0)
[2023-10-26 15:40] LABS: ALBUMIN 3.8 G/DL (3.2-5.2); ALKALINE PHOSPHATASE 34 U/L (46-116); ALT/SGPT 15 U/L (7.0-40); AST/SGOT 17 U/L (<34); BILIRUBIN,TOTAL 0.3 MG/DL (0.3-1.2); BLOOD UREA NITROGEN 20 MG/DL (9-23); CARBON DIOXIDE LEVEL 27 MMOL/L (20-31); CHLORIDE LEVEL 108 MMOL/L (98-107); CREATININE FOR GFR 0.53 MG/DL (0.55-1.30); GLOMERULAR FILTRATION RATE > 60.0 (>60); GLUCOSE, FASTING 98 MG/DL (60-100); POTASSIUM SERUM 4.5 MMOL/L (3.5-5.1); SODIUM LEVEL 138 MMOL/L (136-145)
== END ==
LOC: M PLALAB 09:24
PROVIDERS: ATTEND Internal Medicine Infectious Disease
DX: B18.1 Chronic viral hepatitis B without delta-agent (principal)

== ENCOUNTER → 2024-02-09 | Outpatient (REF) | payer BC ==
[2024-02-09 20:57] LABS: GC DNA AMPLIFICATION NEGATIVE (NEGATIVE)
== END ==
LOC: M PLALAB 14:31
PROVIDERS: ATTEND Obstetrics & Gynecology
DX: N93.9 Abnormal uterine and vaginal bleeding, unspecified (principal)

== ENCOUNTER → 2024-03-15 | Outpatient (CLI) | payer BC | LOC: M WHC 09:39 | PROVIDERS: ATTEND Obstetrics & Gynecology | DX: N93.9 Abnormal uterine and vaginal bleeding, unspecified (principal); N83.201 Unspecified ovarian cyst, right side ==

== ENCOUNTER → 2024-03-26 | Outpatient (REF) | payer BC | LOC: M LAB REF 17:20 | PROVIDERS: ATTEND Physician Assistant | DX: R30.0 Dysuria (principal) ==

== ENCOUNTER → 2024-05-05 | Outpatient (REF) | payer BC ==
[2024-05-07 16:48] LABS: HPV APTIMA Not Detected (Not Detected)
== END ==
LOC: M SFHCWAGY 13:32
PROVIDERS: ATTEND Obstetrics & Gynecology
DX: Z12.4 Encounter for screening for malignant neoplasm of cervix (principal)

== ENCOUNTER → 2024-05-23 | Outpatient (CLI) | payer BC ==
[2024-05-23 13:05] LABS: BASO % 0.5 % (0.0-1.0); EOS # 0.1 10^3/uL (0.0-0.5); EOS % 1.7 % (0.0-3.0); HEMATOCRIT 37.4 % (36.0-47.0); LYMPH # 2.4 10^3/uL (1.5-5.0); LYMPH % 38.3 % (24.0-44.0); MEAN CORPUSCULAR HEMOGLOBIN 29.6 pg (27.0-33.0); MEAN CORPUSCULAR HGB CONC 32.1 g/dl (32.0-36.5); MEAN CORPUSCULAR VOLUME 92.3 fl (80.0-96.0); MONO # 0.4 10^3/uL (0.0-0.8); NEUTROPHILS # 3.3 10^3/uL (1.5-8.5); NEUTROPHILS % 52.3 % (36.0-66.0); PLATELET COUNT, AUTOMATED 317 10^3/uL (150-450); RED BLOOD COUNT 4.05 10^6/uL (4.00-5.40); WHITE BLOOD COUNT 6.3 10^3/uL (4.0-10.0)
[2024-05-23 13:36] LABS: HEMOGLOBIN A1c 5.4 % (4.0-6.0)
[2024-05-23 13:38] LABS: ALBUMIN 3.5 G/DL (3.2-5.2); ALKALINE PHOSPHATASE 33 U/L (35-104); ALT/SGPT 12 U/L (7.0-40); AST/SGOT 16 U/L (<34); BILIRUBIN,TOTAL 0.6 MG/DL (0.3-1.2); BLOOD UREA NITROGEN 21 MG/DL (9-23); CALCIUM LEVEL 8.8 MG/DL (8.5-10.1); CARBON DIOXIDE LEVEL 25 MMOL/L (20-31); CHLORIDE LEVEL 107 MMOL/L (98-107); CREATININE FOR GFR 0.54 MG/DL (0.55-1.30); GLOMERULAR FILTRATION RATE > 60.0 (>60); GLUCOSE, FASTING 96 MG/DL (60-100); POTASSIUM SERUM 4.1 MMOL/L (3.5-5.1); SODIUM LEVEL 140 MMOL/L (136-145)
[2024-05-24 14:02] LABS: log 10 HBV IU/mL 3.63 Log IU/mL (NOT DETECTED)
== END ==
LOC: M PLALAB 09:40
PROVIDERS: ATTEND Internal Medicine Infectious Disease
DX: B18.1 Chronic viral hepatitis B without delta-agent (principal); E74.39 Other disorders of intestinal carbohydrate absorption; E55.9 Vitamin D deficiency, unspecified

== ENCOUNTER → 2025-01-17 | Outpatient (CLI) | payer BC ==
[2025-01-17 15:26] LABS: BASO # 0.0 10^3/uL (0.0-0.2); BASO % 0.4 % (0.0-1.0); EOS # 0.1 10^3/uL (0.0-0.5); EOS % 1.2 % (0.0-3.0); LYMPH # 2.1 10^3/uL (1.5-5.0); LYMPH % 31.3 % (24.0-44.0); MONO # 0.4 10^3/uL (0.0-0.8); MONO % 6.5 % (2.0-8.0); NEUTROPHILS # 4.1 10^3/uL (1.5-8.5); NEUTROPHILS % 60.5 % (36.0-66.0); PLATELET COUNT, AUTOMATED 277 10^3/uL (150-450)
[2025-01-17 15:30] LABS: ALT/SGPT 10 U/L (7.0-40); AST/SGOT 21 U/L (<34); CALCIUM LEVEL 8.9 MG/DL (8.5-10.1); CARBON DIOXIDE LEVEL 27 MMOL/L (20-31); CHLORIDE LEVEL 103 MMOL/L (98-107); CHOLESTEROL LEVEL 179 MG/DL (<200); CHOLESTEROL RISK RATIO 3.23 (<5); CREATININE FOR GFR 0.51 MG/DL (0.55-1.30); GLOMERULAR FILTRATION RATE > 90.0 (>60); LDL CHOLESTEROL 108.3 MG/DL (<100); NON-HDL-C 123.7 MG/DL; POTASSIUM SERUM 4.0 MMOL/L (3.5-5.1); SODIUM LEVEL 139 MMOL/L (136-145); TRIGLYCERIDES LEVEL 77 MG/DL (<150)
[2025-01-20 21:52] LABS: HEPATITIS BE ANTIBODY Nonreactive (NON REACTIV); HEPATITIS BE ANTIGEN Nonreactive (NON REACTIV)
== END ==
LOC: M PLALAB 13:39
PROVIDERS: ATTEND Internal Medicine Infectious Disease
DX: Z13.220 Encounter for screening for lipoid disorders (principal); B18.1 Chronic viral hepatitis B without delta-agent